=== PATIENT | female | born 1935 | race Caucasian/White ===

== ENCOUNTER → 2016-09-03 | Outpatient (CLI) | payer BC ==
[~2016-09-03] MED LIST: ASPI325T45 PO; ATEN-173 PO; CHOL1000 PO; LOSA50TA6 PO; MULT-663 PO; NXM/40 PO; VITAMIN B12 PO
== END | disposition home or self-care (01) ==
LOC: C.RDSM 10:24
PROVIDERS: ATTEND Physical Medicine & Rehabilitation Sports Medicine
DX: M17.0 Bilateral primary osteoarthritis of knee (principal); M25.561 Pain in right knee

== ENCOUNTER 2017-04-03 14:03 | Inpatient (IN) | payer OTHER, BC ==
[~2017-04-03] VITALS: Ht 162.6 cm; Wt 71.5 kg
[2017-04-03] MEDS ORDERED: MoRPHine SULFATE 4 MG/ML 1 ML CARP\\VIAL ONE ×2 (14:04→14:20)
[2017-04-03] MEDS ORDERED: ONDANSETRON INJ 2 MG/ML 2 ML VIAL ONE (14:04)
[2017-04-03] MEDS ORDERED: HYDROmorphone INJ 0.5 MG/0.5 ML SYR IV PRN ×3 (14:30→16:15)
[2017-04-03 14:37] LABS: BASO % 0.3 %; BASO ABS # 0.03 K/uL (0-0.2); EOS % 2.8 %; EOS ABS # 0.26 K/uL (0-0.5); HEMATOCRIT 38.9 % (37-47); HEMOGLOBIN 13.2 g/dL (12.0-16.0); IG# 0.02 K/uL (0.00-0.02); LYMPH % 25.3 %; LYMPH ABS # 2.36 K/uL (1.2-3.4); MEAN CELL VOLUME 88.8 fL (80-100); MEAN CORPUSCULAR HEMOGLOBIN 30.1 pg (25-34); MEAN CORPUSCULAR HGB CONC 33.9 g/dl (32-36); MEAN PLATELET VOLUME 10.2 fL (7.4-10.4); MONO % 8.8 %; MONO ABS # 0.82 K/uL (0.11-0.59); NEUT % 62.6 %; NEUT ABS # 5.85 K/uL (1.4-6.5); PLATELET COUNT 304 K/uL (130-400); RED CELL DISTRIBUTION WIDTH CV 13.4 % (11.5-14.5); RED CELL DISTRIBUTION WIDTH SD 43.5 fL (36.4-46.3); WHITE BLOOD COUNT 9.34 K/uL (4.8-10.8)
[2017-04-03] MEDS: HYDROmorphone INJ 0.5 MG/0.5 ML SYR IV PRN ×2 (14:40→18:14)
--- NOTE | 2017-04-03 14:42 | EMERGENCY ROOM VISIT NOTE ---
History First contact with patient: 14:28 Chief Complaint: FALL Stated Complaint: FALL History of Present Illness The patient is a 82 year old female who presents to the Emergency Room with complaints of intractable left hip pain after a fall. 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 C/o intractable pain on her left hip/ upper thigh area with no radiation. denies any numbness/tingling or loss of sensation. denies any palpitations, CP, dizziness or lightheadedness prior to the fall. denies any LOC or any head injury She has a h/o polio affecting her right leg. Source of History: patient Symptom Intensity: severe Quality: stabbing Timing: constant Associated Symptoms: No fevers, No chills, No chest pain, No SOB, No back pain, No numbness Review of Systems See above for pertinent positives & negatives. A total of 10 systems reviewed and were otherwise negative. Past Medical/Surgical History Medical Problems: (1) Breast cancer (2) Heart disease (3) Hip fracture (4) Hyperlipidemia (5) Hypertension (6) Polio (7) Vertigo Family History FHx: cancer FHx: hypertension Social History Smoking Status: Never Smoker Alcohol Use: occasionally Drug Use: none Marital Status: Occupation Status: retired Current/Historical Medications Scheduled Aspirin (Aspirin), 2 TAB PO 4XWK Atenolol (Tenormin), 25 MG PO QPM Cholecalciferol (Vitamin D3), 2 TAB PO QAM Losartan Potassium (Cozaar), 50 MG PO QPM Multiple Minerals W/ Vitamins (Citracal Plus), 1 TAB PO QAM [Vitamin B12], 3,000 MG PO QAM Scheduled PRN Esomeprazole Magnesium (Nexium), 40 MG PO DAILY PRN for PRN Physical Exam Vital Signs Date Time Temp Pulse Resp B/P (MAP) Pulse Ox O2 Delivery O2 Flow Rate FiO2 04/03/17 16:56 85 18 136/68 99 Room Air 04/03/17 16:00 81 16 101/54 98 Nasal Cannula 2.0 04/03/17 14:28 100 Nasal Cannula 2.0 04/03/17 14:11 72 04/03/17 14:11 70 18 122/83 98 Room Air Physical Exam GENERAL: Patient is in no acute distress. HEENT: No acute trauma, normocephalic atraumatic, mucous membranes moist, no nasal congestion, no scleral icterus. NECK: No stridor, no adenopathy, no meningismus, trachea is midline. LUNGS: Clear to auscultation bilaterally, no wheeze, no rhonchi, breath sounds equal. HEART: Without murmurs gallops or rubs, regular rate and rhythm. ABDOMEN: Soft, nontender, bowel sounds positive, no hernias, no peritonitis. EXTREMITIES: No cyanosis or edema, left lower extremity everted, no visible bruising or abrasions. neurovascularly intact NEUROLOGIC: Oriented x 3, no acute motor or sensory deficits, no focal weakness. SKIN: No rash, no jaundice, no diaphoresis. Medical Decision & Procedures ER Provider Diagnostic Interpretation: CXR: CHEST ONE VIEW PORTABLE CLINICAL HISTORY: 82 years-old Female presenting with fall. TECHNIQUE: Portable supine AP view of the chest was obtained. COMPARISON: 10/15/2014. FINDINGS: Atherosclerosis of the aortic arch. Cardiac silhouette normal in size. Surgical clips project over the left mid lung, unchanged. Mildly prominent lung markings. No focal opacity. No large effusion or pneumothorax. Degenerative changes of the thoracic spine. Left shoulder arthroplasty. Effacement of the right acromiohumeral interval suggests chronic rotator cuff tear. Upper abdomen normal. IMPRESSION: 1. Prominent pulmonary lung markings could relate to volume overload or supine positioning. No convincing evidence of acute cardiopulmonary disease. Electronically signed by: Ibrahima Galo M.D. 04/03/2017 3:15 PM Dictated Date/Time: 04/03/2017 3:14 PM Pelvis Xray: [~ rep ct add3]] PELVIS 1 OR 2 VIEW ROUTINE CLINICAL HISTORY: Fall. COMPARISON STUDY: No previous studies for comparison. FINDINGS: Note is made of an acute moderately displaced comminuted intertrochanteric fracture of the left femur. Significant associated angulation is noted due to the fracture. No pelvic or proximal right femoral fracture is identified. The sacroiliac joints and symphysis pubis are intact. IMPRESSION: Acute moderately displaced comminuted intertrochanteric fracture of the left femur with significant associated angulation. Electronically signed by: Mir Colón M.D. 04/03/2017 3:16 PM Dictated Date/Time: 04/03/2017 3:15 PM L HIP UNILATERAL 2 VIEWS CLINICAL HISTORY: Left hip fracture trauma. Pain. COMPARISON: None. DISCUSSION: Intertrochanteric fracture left hip. No evidence for acetabular protrusion. Mild superior migration left femoral shaft. There is no evidence for soft tissue swelling. IMPRESSION: Intertrochanteric fracture left hip. Mild superior migration left femoral shaft. Laboratory Results 04/03/17 14:10 Red Blood Count 4.38, Mean Corpuscular Volume 88.8, Mean Corpuscular Hemoglobin 30.1, Mean Corpuscular Hemoglobin Concent 33.9, Mean Platelet Volume 10.2, Neutrophils (%) (Auto) 62.6, Lymphocytes (%) (Auto) 25.3, Monocytes (%) (Auto) 8.8, Eosinophils (%) (Auto) 2.8, Basophils (%) (Auto) 0.3, Neutrophils # (Auto) 5.85, Lymphocytes # (Auto) 2.36, Monocytes # (Auto) 0.82, Eosinophils # (Auto) 0.26, Basophils # (Auto) 0.03 04/03/17 14:10 Test 04/03/17 14:10 04/03/17 16:16 White Blood Count 9.34 K/uL (4.8-10.8) Red Blood Count 4.38 M/uL (4.2-5.4) Hemoglobin 13.2 g/dL (12.0-16.0) Hematocrit 38.9 % (37-47) Mean Corpuscular Volume 88.8 fL (80-100) Mean Corpuscular Hemoglobin 30.1 pg (25-34) Mean Corpuscular Hemoglobin Concent 33.9 g/dl (32-36) Platelet Count 304 K/uL (130-400) Mean Platelet Volume 10.2 fL (7.4-10.4) Neutrophils (%) (Auto) 62.6 % Lymphocytes (%) (Auto) 25.3 % Monocytes (%) (Auto) 8.8 % Eosinophils (%) (Auto) 2.8 % Basophils (%) (Auto) 0.3 % Neutrophils # (Auto) 5.85 K/uL (1.4-6.5) Lymphocytes # (Auto) 2.36 K/uL (1.2-3.4) Monocytes # (Auto) 0.82 K/uL (0.11-0.59) Eosinophils # (Auto) 0.26 K/uL (0-0.5) Basophils # (Auto) 0.03 K/uL (0-0.2) RDW Standard Deviation 43.5 fL (36.4-46.3) RDW Coefficient of Variation 13.4 % (11.5-14.5) Immature Granulocyte % (Auto) 0.2 % Immature Granulocyte # (Auto) 0.02 K/uL (0.00-0.02) Prothrombin Time 9.5 SECONDS (9.0-12.0) Prothromb Time International Ratio 0.9 (0.9-1.1) Activated Partial Thromboplast Time 24.5 SECONDS (21.0-31.0) Partial Thromboplastin Ratio 0.9 Anion Gap 10.0 mmol/L (3-11) Est Creatinine Clear Calc Drug Dose 56.9 ml/min Estimated GFR () 81.4 Estimated GFR (Non- 70.2 BUN/Creatinine Ratio 20.0 (10-20) Calcium Level 9.1 mg/dl (8.5-10.1) Troponin I < 0.015 ng/ml (0-0.045) Medications Administered Medications (Trade) Dose Ordered Sig/Lashaun Route Start Time Stop Time Status Last Admin Dose Admin Morphine Sulfate (MoRPHine SULFATE INJ) 4 mg STK-MED ONCE .ROUTE 04/03/17 14:04 04/03/17 14:05 DC 04/03/17 14:04 4 MG Ondansetron HCl (Zofran Inj) 4 mg STK-MED ONCE .ROUTE 04/03/17 14:04 04/03/17 14:05 DC 04/03/17 14:04 4 MG Morphine Sulfate (MoRPHine SULFATE INJ) 4 mg STK-MED ONCE .ROUTE 04/03/17 14:20 04/03/17 14:21 DC 04/03/17 14:20 4 MG Hydromorphone HCl (Dilaudid Inj) 0.5 mg Q20M PRN IV 04/03/17 14:30 04/17/17 14:29 04/03/17 14:40 0.5 MG ECG Per My Interpretation Indication: other (fall) Rate (beats per minute): 83 Rhythm: normal sinus Change: no significant change Medical Decision Prior records reviewed and summarized above. Triage Nursing notes reviewed. The patient's history was concerning for left hip pain after a fall. Differential diagnosis: Etiologies such as fracture, dislocation, neurovascular compromise, compartment syndrome, soft tissue injury, as well as others were entertained. Physical examination: Consistent with an isolated hip injury. ER treatment provided: IV lock CBC, CMP, X rays hip/pelvis, CXR, EKG were ordered NPO Was given 8 mg IV Morphine and 2 mg of Dilaudid Bedrest On reassessment the patient felt better. Diagnostics interpreted by me: ECG: Normal sinus rhythm Nonspecific ST and T wave abnormality Abnormal ECG When compared with ECG of 13-MAY-2013 14:59, No significant change was found EKG was repeated after she complained about epigastric pain no significant change was found compared to earlier EKG. The labs revealed an unremarkable CBC, coagulation studies, and chemistry panel. Imaging studies: Xrays : CXR: 1. Prominent pulmonary lung markings could relate to volume overload or supine positioning. No convincing evidence of acute cardiopulmonary disease. Pelvis xray: Acute moderately displaced comminuted intertrochanteric fracture of the left femur with significant associated angulation. Hip Xray: Intertrochanteric fracture left hip. Mild superior migration left femoral shaft. The patient has an isolated hip fracture and will need admission to the hospital. Consultation: A consultation was placed with [facility] orthopedics. The case was discussed and diagnostics were reviewed. The patient was evaluated in the ER for further treatment. The case was discussed with [facility] hospital[facility] and she will be admitted for further eval. 82 y/o F with left hip pain after a mechanical fall on her left side. Hip/ pelvis X rays revealed comminuted intertrochanteric fracture of her left hip. Pain was managed adequately with morphine 8 mg IV and Dilaudid 2mg. Orthopedics was consulted and she is scheduled for an ORIF with trochanteric nail tomorrow pending clearance by medicine. Impression Primary Impression: Intertrochanteric fracture of left hip Additional Impression: Fall Departure Information Referrals Nolan Jacinto M.D. (PCP) Patient Instructions My [facility] Resident Tracking Resident Involvement: Resident Care Provided Care Provided: Adult ED Problem Qualifiers
[2017-04-03 14:44] LABS: CREATININE 0.79 mg/dl (0.60-1.20)
[2017-04-03 14:45] LABS: CALCIUM 9.1 mg/dl (8.5-10.1)
[2017-04-03 14:53] LABS: INR 0.9 (0.9-1.1); PTT PATIENT 24.5 SECONDS (21.0-31.0)
--- NOTE | 2017-04-03 15:17 | DIAGNOSTIC IMAGING REPORT ---
CHEST ONE VIEW PORTABLE CLINICAL HISTORY: 82 years-old Female presenting with fall. TECHNIQUE: Portable supine AP view of the chest was obtained. COMPARISON: 10/15/2014. FINDINGS: Atherosclerosis of the aortic arch. Cardiac silhouette normal in size. Surgical clips project over the left mid lung, unchanged. Mildly prominent lung markings. No focal opacity. No large effusion or pneumothorax. Degenerative changes of the thoracic spine. Left shoulder arthroplasty. Effacement of the right acromiohumeral interval suggests chronic rotator cuff tear. Upper abdomen normal. IMPRESSION: 1. Prominent pulmonary lung markings could relate to volume overload or supine positioning. No convincing evidence of acute cardiopulmonary disease. Electronically signed by: Ibrahima Galo M.D. 04/03/2017 3:15 PM Dictated Date/Time: 04/03/2017 3:14 PM
--- NOTE | 2017-04-03 15:17 | DIAGNOSTIC IMAGING REPORT ---
PELVIS 1 OR 2 VIEW ROUTINE CLINICAL HISTORY: Fall. COMPARISON STUDY: No previous studies for comparison. FINDINGS: Note is made of an acute moderately displaced comminuted intertrochanteric fracture of the left femur. Significant associated angulation is noted due to the fracture. No pelvic or proximal right femoral fracture is identified. The sacroiliac joints and symphysis pubis are intact. IMPRESSION: Acute moderately displaced comminuted intertrochanteric fracture of the left femur with significant associated angulation. Electronically signed by: Mir Colón M.D. 04/03/2017 3:16 PM Dictated Date/Time: 04/03/2017 3:15 PM
[2017-04-03] MEDS ORDERED: BISACODYL 10 MG SUPP PR PRN (16:15)
[2017-04-03] MEDS ORDERED: MAGNESIUM HYDROXIDE SUSP 30 ML UDC PO PRN ×2 (16:15→16:30)
[2017-04-03] MEDS ORDERED: ONDANSETRON INJ 2 MG/ML 2 ML VIAL IV PRN ×2 (16:15→16:30)
[2017-04-03] MEDS ORDERED: NALOXONE HCL 0.4 MG/1 ML VIAL/CARP IV PRN (16:15)
[2017-04-03] MEDS ORDERED: POLYETHYLENE (MIRALAX) 17 GM PACK PO PRN ×2 (16:15→16:30)
[2017-04-03] MEDS ORDERED: SOD PHOSPHATE/SOD BIPHOSPHATE ENEMA 132 ML BTL PR PRN (16:15)
[2017-04-03] MEDS ORDERED: SODIUM CHLORIDE 0.9% 1000ML 1,000 ML IV SCH (16:25)
[2017-04-03] MEDS ORDERED: ZOLPIDEM TARTRATE 5 MG TAB PO PRN ×2 (16:30)
[2017-04-03] MEDS ORDERED: MoRPHine SULFATE 2 MG/ML CARP IV PRN (16:30)
[2017-04-03] MEDS ORDERED: ALUMINUM/MAGNESIUM/SIMETH (MAALOX MAX) 30 ML UDC PO PRN (16:30)
[2017-04-03] MEDS ORDERED: ACETAMINOPHEN 325 MG TAB PO PRN (16:30)
--- NOTE | 2017-04-03 16:39 | DIAGNOSTIC IMAGING REPORT ---
L HIP UNILATERAL 2 VIEWS CLINICAL HISTORY: Left hip fracture trauma. Pain. COMPARISON: None. DISCUSSION: Intertrochanteric fracture left hip. No evidence for acetabular protrusion. Mild superior migration left femoral shaft. There is no evidence for soft tissue swelling. IMPRESSION: Intertrochanteric fracture left hip. Mild superior migration left femoral shaft. The above report was generated using voice recognition software. It may contain grammatical, syntax or spelling errors. Electronically signed by: Liborio oVss M.D. 04/03/2017 4:37 PM Dictated Date/Time: 04/03/2017 4:36 PM
--- NOTE | 2017-04-03 16:52 | ORTHOPEDIC CONSULTATION REPORT ---
DATE OF CONSULTATION: 04/03/2017 CHIEF COMPLAINT: Left hip pain. HISTORY OF PRESENT ILLNESS: This 82-year-old white female presents to the ED after falling today outside. 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 When she turned, she tripped over a curb and fell directly onto her left hip. She had immediate onset of pain. She states she knew immediately that she broke her hip. She has a known history of polio that affects her right leg. She denies any numbness or tingling. No loss of sensation. There was no dizziness or heart palpitations associated for the fall. No loss of consciousness. She denies any head injury. There was no chest pain or shortness of breath at the time of fall. It was purely mechanical. 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 FAMILY HISTORY: Significant for cancer and hypertension. SOCIAL HISTORY: The patient is . No tobacco use. Occasional ETOH use. Retired. PREVIOUS SURGERIES: Cholecystectomy, right wrist ORIF, right knee arthroscopy, left second toe pinning, breast lumpectomy, tonsillectomy, and bilateral cataract surgery. HABILITATION WORKER: Dr. Iván Gipson. PRIMARY CARE DOCTOR: Dr. Nolan Jacinto. ALLERGIES: KNOWN ALLERGY TO ADHESIVES AND IODINE. CURRENT MEDICATIONS: Aspirin 2 tablets p.o. 4 times a week, atenolol 25 mg p.o. q.p.m., vitamin D3 p.o. q.a.m., Cozaar 50 mg p.o. q.p.m., multivitamin daily, vitamin B12 daily, and Nexium 40 mg p.o. daily. REVIEW OF SYSTEMS: Significant for above stated conditions. Otherwise unremarkable. PHYSICAL EXAMINATION: GENERAL: Well-developed and well-nourished elderly white female in no acute distress. Obvious discomfort. Lying on a bed. Alert and oriented. VITAL SIGNS: Pulse 72, respirations 18, O2 sat 98% on room air, and BP 122/83. SKIN: Warm and dry with good turgor. No rashes or lesions. No ecchymosis or erythema. No significant abrasions. HEENT: Normocephalic and atraumatic. Eyes: PERRLA and EOMI. Pupils are slightly constricted at this time. Nares patent bilaterally without turbinate enlargement. Oropharynx is without erythema or exudate. No lesions noted. Uvula midline. Oral mucosa is slightly dry. HEART: RRR. No MGR. LUNGS: Clear to auscultation bilaterally. No crackles, rhonchi or wheezing. Good air movement. ABDOMEN: Soft and nontender. Hyperactive bowel sounds. No masses noted. MUSCULOSKELETAL: Left leg is short and externally rotated. She has increasing pain with any motion at the left hip. Left hip is also tender to touch. Intact motor function to the ankle and toes without discomfort. Intact motion of the right hip, knee, and ankle. NEUROLOGIC: Cranial nerves II through XII are intact. Gross sensation is intact across the left leg by soft touch. Peripheral pulses are 2+. DATA: Radiographic imaging obtained in the ED shows a comminuted intertrochanteric fracture, moderately displaced with angulation. EKG obtained today shows normal sinus rhythm with a rate of 73. IMPRESSION: Left hip comminuted intertrochanteric fracture with moderate displacement and angulation. PLAN: The patient was educated regarding today's findings. She will require admission and clearance by the medical team. She did eat at approximately 13:00 and will be done tomorrow morning. Preoperative lab work has been completed. I have already spoken with anesthesia and they will evaluate her as well due to her history of polio. I will also speak with her commercial roofer, Dr. Gipson. Anticipate ORIF with a trochanteric nail of the left hip. The patient was seen in conjunction with Dr. Carcamo, who also evaluated the patient and did obtain informed written consent. I attended to this patient and agree with above. [facility]
[2017-04-03] MEDS ORDERED: D5W AND NSS 1,000 ML IV SCH (17:00)
[2017-04-03 17:16] VITALS: O2SAT 99; Ht 162.6 cm; Wt 71.5 kg
--- NOTE | 2017-04-03 17:27 | Progress Note ---
Progress Note Date of Service Apr 03, 2017. 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 Patient is scheduled for ORIF of left hip tomorrow. Pt seen and interviewed in the ED. 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 Pt denies having bulbar involvement of her polio, although she reports dysphagia when she had the polio. Has had EGD with dilation for her schatzki ring, with the most recent one during summer 2016. Pt reports that dysphagia resolved after her last dilation. Discussed with patient regarding anesthesia plan, GA vs. spinal. Risks and benefits for each one was discussed in detail. Patient has had GA for her cholecystectomy and left TSA most recently in 2002 without any complications or prolonged ventilatory support. All questions and concerns were answered and patient was consented. Pt was advised to be NPO after midnight except for small sips of water with meds in the morning.
--- NOTE | 2017-04-03 17:56 | History and Physical ---
History & Physical Date & Time of Service: Apr 03, 2017 at 17:45 Chief Complaint: FALL Primary Care Physician: Nolan Jacinto M.D. History of Present Illness Source: patient, hospital records 82-year-old female with past medical history of hypertension, dyslipidemia, polio with right lower extremity weakness and mid back muscle weakness and osteoporosis. 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 Pelvic x-ray revealed Acute moderately displaced comminuted intertrochanteric fracture of the left femur with significant associated angulation. She does have previous history of multiple falls status post shoulder and wrist fractures. Also his past medical history of breast cancer 24 years ago status post lumpectomy/chemotherapy/radiation Patient said that chemotherapy had left her with mild congestive heart failure, most recent echo was about 5 years ago and showed ejection fraction of 45%. While she is in the ED she developed bigeminy's and frequent ventricular contractions. Past Medical/Surgical History Medical Problems: (1) Breast cancer Status: Chronic (2) Heart disease Status: Chronic (3) Hyperlipidemia Status: Chronic (4) Hypertension Status: Chronic (5) Polio Status: Chronic (6) Vertigo Status: Chronic Family History FHx: cancer FHx: hypertension Social History Smoking Status: Never Smoker Drug Use: none Marital Status: Housing status: lives with family Occupational Status: retired Multi-Drug Resistant Organisms History of MDRO: No Allergies Coded Allergies: Adhesives (Verified Allergy, Mild, UNKNOWN, 11/02/15) SILK SURGICAL TAPE Iodine (Verified Allergy, Mild, UNSURE OF RX, 11/02/15) IODINE DYE Home Medications Scheduled Aspirin (Aspirin), 2 TAB PO 4XWK Atenolol (Tenormin), 25 MG PO QPM Cholecalciferol (Vitamin D3), 2 TAB PO QAM Losartan Potassium (Cozaar), 50 MG PO QPM Multiple Minerals W/ Vitamins (Citracal Plus), 1 TAB PO QAM [Vitamin B12], 3,000 MG PO QAM Scheduled PRN Esomeprazole Magnesium (Nexium), 40 MG PO DAILY PRN for PRN Review of Systems Review of system Constitutional: No fever / no chills / no sweats / no weakness / no fatigue Eyes: no blurring of vision / no eye pain / no discharge / no redness ENT: no hearing loss / no epistaxis /no swallowing problems Respiratory: no cough / no wheezing / no SOB / no hemoptysis Cardiovascular: no Chest pain / no lower extremity edema / no palpitation Abdomen: no pain / no nausea / no vomiting / no constipation Musculoskeletal: no joint pain / no muscle pain / no joint swelling, except for pain and decreased range of motion of her left hip Genitourinary: no dysuria / no incontinence / no urinary retention Neurologic: no focal weakness / no numbness/tingling / no ataxia Psychiatric: no depression symptoms / no anxiety / no insomnia Endocrine: no excessive thirst / no excessive urination Hematologic: no abnormal bleeding / no bruising / no LN swelling Skin: No rash / no pallor Physical Exam Vital Signs Date Time Temp Pulse Resp B/P (MAP) Pulse Ox O2 Delivery O2 Flow Rate FiO2 04/03/17 16:56 85 18 136/68 99 Room Air 04/03/17 16:00 81 16 101/54 98 Nasal Cannula 2.0 04/03/17 14:28 100 Nasal Cannula 2.0 04/03/17 14:11 72 04/03/17 14:11 70 18 122/83 98 Room Air Physical examination General patient appears to be comfortable, not in acute distress HEENT: Atraumatic , normocephalic /no jaundice /no pallor /anicteric /no dry mucous membrane /normal external ear inspection Neck: Supple /no swelling /central trach Heart: S1/S2 normal/regular rate and rhythm/no gallop /no rub /no murmur Lungs: Clear to auscultation bilaterally/normal chest with expansion/no rhonchi/ no rales/no wheezing/no use of accessory muscles of respiration Abdomen: Soft/nontender/no guarding/no rebound/no organomegaly/no pulsatile mass Musculoskeletal: No swelling/no edema/no tenderness/normal range of motion, right lower extremity is longer than left lower extremity, muscles are atrophied in the right lower extremity. Left hip tender and decreased range of motion Neuro exam: Awake alert oriented 3/cranial nerves II through XII appear to be intact/sensation intact/moves all extremities/no abnormal movements, except for weakness in right lower extremity Psychiatric evaluation: No depressed mood/normal affect Skin: No rash on exposed skin area/no erythema Extremity: Normal pulse/no pitting edema/no clubbing or cyanosis Endocrine/lymphatic: No obvious lymphadenopathy /no lymphedema Diagnostics Laboratory Results Results Past 24 Hours Test 04/03/17 14:10 Range/Units White Blood Count 9.34 4.8-10.8 K/uL Red Blood Count 4.38 4.2-5.4 M/uL Hemoglobin 13.2 12.0-16.0 g/dL Hematocrit 38.9 37-47 % Mean Corpuscular Volume 88.8 80-100 fL Mean Corpuscular Hemoglobin 30.1 25-34 pg Mean Corpuscular Hemoglobin Concent 33.9 32-36 g/dl Platelet Count 304 130-400 K/uL Mean Platelet Volume 10.2 7.4-10.4 fL Neutrophils (%) (Auto) 62.6 % Lymphocytes (%) (Auto) 25.3 % Monocytes (%) (Auto) 8.8 % Eosinophils (%) (Auto) 2.8 % Basophils (%) (Auto) 0.3 % Neutrophils # (Auto) 5.85 1.4-6.5 K/uL Lymphocytes # (Auto) 2.36 1.2-3.4 K/uL Monocytes # (Auto) 0.82 0.11-0.59 K/uL Eosinophils # (Auto) 0.26 0-0.5 K/uL Basophils # (Auto) 0.03 0-0.2 K/uL RDW Standard Deviation 43.5 36.4-46.3 fL RDW Coefficient of Variation 13.4 11.5-14.5 % Immature Granulocyte % (Auto) 0.2 % Immature Granulocyte # (Auto) 0.02 0.00-0.02 K/uL Prothrombin Time 9.5 9.0-12.0 SECONDS Prothromb Time International Ratio 0.9 0.9-1.1 Activated Partial Thromboplast Time 24.5 21.0-31.0 SECONDS Partial Thromboplastin Ratio 0.9 Sodium Level 138 136-145 mmol/L Potassium Level 4.0 3.5-5.1 mmol/L Chloride Level 103 98-107 mmol/L Carbon Dioxide Level 24 21-32 mmol/L Anion Gap 10.0 3-11 mmol/L Blood Urea Nitrogen 16 7-18 mg/dl Creatinine 0.79 0.60-1.20 mg/dl Est Creatinine Clear Calc Drug Dose 56.9 ml/min Estimated GFR () 81.4 Estimated GFR (Non- 70.2 BUN/Creatinine Ratio 20.0 10-20 Random Glucose 98 70-99 mg/dl Calcium Level 9.1 8.5-10.1 mg/dl Magnesium Level 2.4 1.8-2.4 mg/dl Troponin I < 0.015 0-0.045 ng/ml Impression Assessment and Plan 82-year-old female with past medical history of systolic congestive heart failure, hypertension, dyslipidemia and polio affecting right lower extremity and mid back muscles. Had mechanical fall and fractured left hip. Assessment: Status post mechanical fall and acute moderately displaced comminuted intertrochanteric fracture of the left femur with significant associated angulation. Bigeminy and multiple ventricular contractions Hypertension Dyslipidemia History of polio with right lower extremity weakness and weakness in mid back muscle History of multiple falls in the past and history of fracture of shoulder/wrist History of myocardial infarct in 2002 Plan Admit to telemetry Obtain potassium and magnesium levels Consult filter machine operator Dr. Bal Continue atenolol, but hold losartan Gentle IV fluid hydration N.p.o. from midnight Aside from her cardiac issues that filter machine operator was consulted for, from the medical aspect benefits of the procedures outweighs the risk, patient denies any chest pain or shortness of breath, for that and patient from my perspective is medically clear for her type replacement, but need filter machine operator clearance as well. Dr. Bal requested a 2D echo that will be done at 6 AM in the morning Follow-up labs Ensure adequate oral/parenteral intake Pain management Physical therapy initiation as per primary orthopedic team DVT prophylaxis as per the choice of primary orthopedic team Advanced Directives Existing Living Will: Yes Existing Power of Tubing Machine Tender: Yes VTE Prophylaxis VTE Risk Assessment Done? Y/N: Yes Risk Level: Moderate
[2017-04-03 18:11] VITALS: BP 139/69; PULSE 74; TEMP 36.7; O2SAT 99
--- NOTE | 2017-04-03 19:09 | EMERGENCY ROOM VISIT NOTE ---
History Report prepared by Melchor: Gerald Perez Under the Supervision of: Dr. Cesario Jamil M.D. 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 She rates her pain a 10/10 in severity. She has a past medical history of polio affecting her right leg. 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 She did not lose consciousness or hit her head. Her pain is not radiating to any other location. Pt denies any headache, visual changes, neck pain, chest pain, breathing difficulties, nausea, vomiting, abdominal pain, back pain, extremity pain, numbness, weakness, open wounds, active bleeding, or other complaints. Her pain worsens significantly with movement. Source of History: patient Onset: SCIENTIFIC PROCESS OPERATOR Position: other (left hip) Symptom Intensity: 10/10 Quality: sharp Timing: constant Modifying Factors (Worsening): movement Review of Systems See HPI for pertinent positives and negatives. A total of ten systems were reviewed and were otherwise negative. Past Medical & Surgical Medical Problems: (1) Breast cancer (2) Heart disease (3) Hip fracture (4) Hyperlipidemia (5) Hypertension (6) Polio (7) Vertigo Family History FHx: cancer FHx: hypertension Social History Smoking Status: Never Smoker Alcohol Use: occasionally Drug Use: none Marital Status: Occupation Status: retired Current/Historical Medications Scheduled Aspirin (Aspirin), 2 TAB PO 4XWK Atenolol (Tenormin), 25 MG PO QPM Cholecalciferol (Vitamin D3), 2 TAB PO QAM Losartan Potassium (Cozaar), 50 MG PO QPM Multiple Minerals W/ Vitamins (Citracal Plus), 1 TAB PO QAM [Vitamin B12], 3,000 MG PO QAM Scheduled PRN Esomeprazole Magnesium (Nexium), 40 MG PO DAILY PRN for PRN Allergies Coded Allergies: Adhesives (Verified Allergy, Mild, UNKNOWN, 11/02/15) SILK SURGICAL TAPE Iodine (Verified Allergy, Mild, UNSURE OF RX, 11/02/15) IODINE DYE Physical Exam Vital Signs Date Time Temp Pulse Resp B/P (MAP) Pulse Ox O2 Delivery O2 Flow Rate FiO2 04/03/17 16:00 81 16 101/54 98 Nasal Cannula 2.0 04/03/17 14:28 100 Nasal Cannula 2.0 04/03/17 14:11 72 04/03/17 14:11 70 18 122/83 98 Room Air Physical Exam GENERAL: Awake, alert, very uncomfortable appearing, in no distress HENT: Normocephalic, atraumatic. Oropharynx unremarkable. EYES: Normal conjunctiva. Sclera non-icteric. NECK: Supple. No nuchal rigidity. FROM. No masses. RESPIRATORY: Clear to auscultation. No wheezes. CARDIAC: Normal rate. Normal rhythm. No murmurs. No rubs. Extremities warm and well perfused. Pulses equal. No JVD. GI: Soft, non-distended. No tenderness to palpation. No rebound or guarding. No masses. RECTAL: Deferred. MUSCULOSKELETAL: Atraumatic. Chest examination reveals no tenderness. The back is symmetrical on inspection without obvious abnormality. There is no CVA tenderness to palpation. No joint edema. LOWER EXTREMITIES: Left hip tenderness to palpation. ROM limited secondary to pain. Calves are equal size bilaterally and non-tender. No edema. No discoloration. NEURO: Normal sensorium. No sensory or motor deficits noted. SKIN: No rash or jaundice noted. Medical Decision & Procedures ER Provider Diagnostic Interpretation: Radiology results as stated below per my review and radiologist interpretation: CHEST ONE VIEW PORTABLE CLINICAL HISTORY: 82 years-old Female presenting with fall. TECHNIQUE: Portable supine AP view of the chest was obtained. COMPARISON: 10/15/2014. FINDINGS: Atherosclerosis of the aortic arch. Cardiac silhouette normal in size. Surgical clips project over the left mid lung, unchanged. Mildly prominent lung markings. No focal opacity. No large effusion or pneumothorax. Degenerative changes of the thoracic spine. Left shoulder arthroplasty. Effacement of the right acromiohumeral interval suggests chronic rotator cuff tear. Upper abdomen normal. IMPRESSION: 1. Prominent pulmonary lung markings could relate to volume overload or supine positioning. No convincing evidence of acute cardiopulmonary disease. Electronically signed by: Ibrahima Galo M.D. 04/03/2017 3:15 PM Dictated Date/Time: 04/03/2017 3:14 PM PELVIS 1 OR 2 VIEW ROUTINE CLINICAL HISTORY: Fall. COMPARISON STUDY: No previous studies for comparison. FINDINGS: Note is made of an acute moderately displaced comminuted intertrochanteric fracture of the left femur. Significant associated angulation is noted due to the fracture. No pelvic or proximal right femoral fracture is identified. The sacroiliac joints and symphysis pubis are intact. IMPRESSION: Acute moderately displaced comminuted intertrochanteric fracture of the left femur with significant associated angulation. Electronically signed by: Mir Colón M.D. 04/03/2017 3:16 PM Dictated Date/Time: 04/03/2017 3:15 PM Laboratory Results 04/03/17 14:10 Red Blood Count 4.38, Mean Corpuscular Volume 88.8, Mean Corpuscular Hemoglobin 30.1, Mean Corpuscular Hemoglobin Concent 33.9, Mean Platelet Volume 10.2, Neutrophils (%) (Auto) 62.6, Lymphocytes (%) (Auto) 25.3, Monocytes (%) (Auto) 8.8, Eosinophils (%) (Auto) 2.8, Basophils (%) (Auto) 0.3, Neutrophils # (Auto) 5.85, Lymphocytes # (Auto) 2.36, Monocytes # (Auto) 0.82, Eosinophils # (Auto) 0.26, Basophils # (Auto) 0.03 04/03/17 14:10 Test 04/03/17 14:10 White Blood Count 9.34 K/uL (4.8-10.8) Red Blood Count 4.38 M/uL (4.2-5.4) Hemoglobin 13.2 g/dL (12.0-16.0) Hematocrit 38.9 % (37-47) Mean Corpuscular Volume 88.8 fL (80-100) Mean Corpuscular Hemoglobin 30.1 pg (25-34) Mean Corpuscular Hemoglobin Concent 33.9 g/dl (32-36) Platelet Count 304 K/uL (130-400) Mean Platelet Volume 10.2 fL (7.4-10.4) Neutrophils (%) (Auto) 62.6 % Lymphocytes (%) (Auto) 25.3 % Monocytes (%) (Auto) 8.8 % Eosinophils (%) (Auto) 2.8 % Basophils (%) (Auto) 0.3 % Neutrophils # (Auto) 5.85 K/uL (1.4-6.5) Lymphocytes # (Auto) 2.36 K/uL (1.2-3.4) Monocytes # (Auto) 0.82 K/uL (0.11-0.59) Eosinophils # (Auto) 0.26 K/uL (0-0.5) Basophils # (Auto) 0.03 K/uL (0-0.2) RDW Standard Deviation 43.5 fL (36.4-46.3) RDW Coefficient of Variation 13.4 % (11.5-14.5) Immature Granulocyte % (Auto) 0.2 % Immature Granulocyte # (Auto) 0.02 K/uL (0.00-0.02) Prothrombin Time 9.5 SECONDS (9.0-12.0) Prothromb Time International Ratio 0.9 (0.9-1.1) Activated Partial Thromboplast Time 24.5 SECONDS (21.0-31.0) Partial Thromboplastin Ratio 0.9 Anion Gap 10.0 mmol/L (3-11) Est Creatinine Clear Calc Drug Dose 56.9 ml/min Estimated GFR () 81.4 Estimated GFR (Non- 70.2 BUN/Creatinine Ratio 20.0 (10-20) Calcium Level 9.1 mg/dl (8.5-10.1) Magnesium Level 2.4 mg/dl (1.8-2.4) Troponin I < 0.015 ng/ml (0-0.045) Laboratory results reviewed by me Medications Administered Medications (Trade) Dose Ordered Sig/Lashaun Route Start Time Stop Time Status Last Admin Dose Admin Morphine Sulfate (MoRPHine SULFATE INJ) 4 mg STK-MED ONCE .ROUTE 04/03/17 14:04 04/03/17 14:05 DC 04/03/17 14:04 4 MG Ondansetron HCl (Zofran Inj) 4 mg STK-MED ONCE .ROUTE 04/03/17 14:04 04/03/17 14:05 DC 04/03/17 14:04 4 MG Morphine Sulfate (MoRPHine SULFATE INJ) 4 mg STK-MED ONCE .ROUTE 04/03/17 14:20 04/03/17 14:21 DC 04/03/17 14:20 4 MG Hydromorphone HCl (Dilaudid Inj) 0.25 mg Q20M PRN IV 04/03/17 14:30 04/03/17 18:31 DC 04/03/17 17:05 0.25 MG Hydromorphone HCl (Dilaudid Inj) 0.5 mg Q20M PRN IV 04/03/17 14:30 18 18:31 DC 04/03/17 18:14 0.5 MG Sodium Chloride 1,000 ml @ 50 mls/hr Q20H IV 04/03/17 16:25 05/03/17 16:24 04/03/17 18:34 50 MLS/HR ECG Per My Interpretation Indication: other (Trauma) Rate (beats per minute): 73 Rhythm: normal sinus Findings: nonspecific-ST abn, no ectopy Change: 2nd ECG revealed normal sinus rhythm with a rate of [address] abnormalities seen without any ectopy. No significant change from previous ECG. Patient's electrocardiograms were interpreted by me. ED Course 1411: The patient was evaluated in room A1. A complete history and physical exam was performed. 1505: I discussed the patient's case with Barry Ling of Orthopedics at this time. He recommended further inpatient evaluation with a medicine team, but he will come evaluate the patient in the ER as well. 1539: Upon reexamination, the patient was resting. I discussed the test results and treatment plan with her. I discussed the patient's case with Dr. Dennis Xiao of [facility]. The patient will be evaluated for further management. Medical Decision Triage Nursing notes reviewed and agree them. The patient's history was concerning for traumatic injury. Differential diagnosis: Etiologies such as fracture, dislocation, neurovascular compromise, compartment syndrome, soft tissue injury, as well as others were entertained. Physical examination: Consistent with an isolated hip injury. ER treatment provided: IV lock Zofran 4mg IV Morphine times multiple doses IV Dilaudid NPO Bedrest On reassessment the patient felt better. Diagnostics interpreted by me: ECG: As above The labs revealed an unremarkable CBC, coags, and chemistry panel. Imaging studies: Xrays as above. The patient has an isolated hip fracture and will need admission to the hospital. Consultation: A consultation was placed with [facility] orthopedics . The case was discussed and diagnostics were reviewed. The patient was evaluated in the ER for further treatment. The patient was seen and examined with Dr. Fair, resident physician. We discussed the case and treatments ordered, reviewed the results, and determine the disposition. Please refer to the resident's note for additional details. I have been directly involved with the management and disposition as well as independently evaluated the patient as documented in this note. Medication Reconcilliation Current Medication List: was personally reviewed by me Blood Pressure Screening Patient's blood pressure: Normal blood pressure Blood pressure disposition: Did not require urgent referral Consults Time Called: 1500 Consulting Physician: Barry Ling PA-C - Orthopedics Returned Call: 1505 We discussed the patient's case. He recommended further treatment and evaluation as an inpatient. He will be in to evaluate the patient. Additional Consults: Time Called: 1535 [facility] Returned Call: [phone] Additional Comments: Discussed the patient's case. The patient will be evaluated for further treatment and disposition. Impression Primary Impression: Hip fracture Additional Impression: Fall Scribe Attestation The scribe's documentation has been prepared under my direction and personally reviewed by me in its entirety. I confirm that the note above accurately reflects all work, treatment, procedures, and medical decision making performed by me. Departure Information Dispostion Being Evaluated By Hospitalist Referrals Nolan Jacinto M.D. (PCP) Patient Instructions [facility] Problem Qualifiers Primary Impression: Hip fracture Encounter type: initial encounter Fracture type: closed Laterality: left Qualified Codes: S72.002A - Fracture of unspecified part of neck of left femur , initial encounter for closed fracture Additional Impression: Fall Encounter type: initial encounter Qualified Codes: W19.XXXA - Unspecified fall, initial encounter
[2017-04-03 19:30] VITALS: BP 116/72; PULSE 81; TEMP 36.7; O2SAT 91
[2017-04-03] MEDS ORDERED: DOCUSATE SODIUM/SENNA 50/8.6MG TAB PO SCH (21:00)
[2017-04-03] MEDS ORDERED: ERGOCALCIFEROL 50,000 INTER.UNIT CAP PO ONE (22:15)
[2017-04-04 00:17] VITALS: BP 100/54; PULSE 80; TEMP 36.7; O2SAT 94
[2017-04-04 04:53] VITALS: BP 101/56; PULSE 66; TEMP 36.6; O2SAT 97
[2017-04-04 05:53] LABS: HEMATOCRIT 33.5 % (37-47); HEMOGLOBIN 11.4 g/dL (12.0-16.0); MEAN CELL VOLUME 88.6 fL (80-100); MEAN CORPUSCULAR HEMOGLOBIN 30.2 pg (25-34); MEAN PLATELET VOLUME 9.9 fL (7.4-10.4); PLATELET COUNT 241 K/uL (130-400); RED CELL DISTRIBUTION WIDTH CV 13.6 % (11.5-14.5); RED CELL DISTRIBUTION WIDTH SD 43.9 fL (36.4-46.3); WHITE BLOOD COUNT 8.88 K/uL (4.8-10.8)
[2017-04-04] MEDS ORDERED: CEFAZOLIN 2000MG IV PUSH 15 ML IV SCH (06:00)
[2017-04-04 06:20] LABS: ALBUMIN 2.9 gm/dl (3.4-5.0); CALCIUM 8.3 mg/dl (8.5-10.1); CREATININE 0.62 mg/dl (0.60-1.20); POTASSIUM 3.9 mmol/L (3.5-5.1)
[2017-04-04 06:23] LABS: TOTAL PROTEIN 5.9 gm/dl (6.4-8.2)
[2017-04-04 06:26] LABS: BASO % 0.1 %; BASO ABS # 0.01 K/uL (0-0.2); EOS % 0.1 %; EOS ABS # 0.01 K/uL (0-0.5); IG# 0.03 K/uL (0.00-0.02); LYMPH % 10.5 %; LYMPH ABS # 0.93 K/uL (1.2-3.4); MONO % 11.7 %; MONO ABS # 1.04 K/uL (0.11-0.59); NEUT % 77.3 %; NEUT ABS # 6.86 K/uL (1.4-6.5)
[2017-04-04] MEDS ORDERED: BUPIVACAINE 0.5 % 5 MG/1 ML PF 10ML VIAL ONE (06:27)
[2017-04-04] MEDS ORDERED: ROCURONIUM BROMIDE 10 MG/ML 5 ML VIAL IV ONE (06:34)
[2017-04-04] MEDS ORDERED: NEOSTIGMINE METHYLSULFATE 5 MG/5 ML SYR ONE (06:34)
[2017-04-04] MEDS ORDERED: ONDANSETRON INJ 2 MG/ML 2 ML VIAL ONE (06:34)
[2017-04-04] MEDS ORDERED: GLYCOPYRROLATE INJ 0.2 MG/ML VIAL ONE (06:34)
[2017-04-04] MEDS ORDERED: PROPOFOL IV EMULSION 10 MG/ML 20 ML VIAL IV ONE (06:34)
[2017-04-04] MEDS ORDERED: LIDOCAINE HCL 2% 2 ML VIAL (20MG/ML) ONE (06:34)
[2017-04-04] MEDS ORDERED: FENTANYL CITRATE INJ 50 MCG/1 ML 2 ML VIAL ONE (06:35)
[2017-04-04] MEDS ORDERED: MIDAZOLAM HCL 1 MG/ML 2ML VIAL ONE (06:35)
[2017-04-04 07:03] VITALS: BP 97/49; PULSE 76; TEMP 36.9; O2SAT 91
--- NOTE | 2017-04-04 07:16 | History & Physical Bridge Note ---
H&P Re-Evaluation Bridge Note: I have examined the patient, reviewed the History & Physical and in the interval since the performance of the History & Physical I have noted the following changes of clinical significance:awaits echo result,otherwise no change.No changes noted
[2017-04-04] MEDS ORDERED: KETAMINE HCL INJ 50 MG/ML 10 ML VIAL ONE (08:04)
--- NOTE | 2017-04-04 08:04 | Cardiology Consultation ---
Cardiology Consultation Date of Consultation: Apr 04, 2017. Requesting Physician: Dr. Xiao Reason for Consultation: History of cardiomyopathy Pt evaluation today including: conversation w/ patient, physical exam, lab review, review of studies, review of inpatient medication list History of Present Illness This is a very pleasant 82-year-old woman, she has a history of hypertension, hypercholesterolemia and a long-standing mild cardiomyopathy probably related to prior chemotherapy from breast cancer. That was many years ago and her ejection fraction in the past has been in the 40-50% range. She has been doing well lately, she continues to be active and does not have exertional shortness of breath, orthopnea, PND or peripheral edema. She has no palpitations and no exertional chest discomfort. She presents now following a fall, she was helping a patient into a car and when she turned to go back into the hospital she tripped over a rise in the pavement. She is very clear that she had no lightheadedness or dizziness, no presyncope or syncope and no palpitations. Her only complaint is hip discomfort. Past Medical/Surgical History (1) Breast cancer (2) Hypertension (3) Hyperlipidemia (4) Polio Family History FHx: cancer FHx: hypertension Social History Smoking Status: Never Smoker History of Alcohol Use: Yes (OCCASSIONALLY) Review of Systems Constitutional: No fever, No weight loss, No weakness Respiratory: No cough, No wheezing, No shortness of breath, No dyspnea on exertion Cardiac: No chest pain, No orthopnea, No PND, No edema, No palpitations Abdomen: No pain, No nausea, No vomiting, No diarrhea, No GI bleeding Female : No problem reported Neurologic: No paralysis, No weakness, No numbness/tingling, No balance problems Heme: No abnormal bleeding/bruising, No clotting problems Endo: No fatigue Skin: No problem reported Hip pain All Other Systems: Reviewed and Negative Allergies Coded Allergies: Adhesives (Verified Allergy, Mild, UNKNOWN, 11/02/15) SILK SURGICAL TAPE Iodine (Verified Allergy, Mild, UNSURE OF RX, 11/02/15) IODINE DYE Medications Current Inpatient Medications Medications (Trade) Dose Ordered Sig/Lashaun Route Start Time Stop Time Status Last Admin Dose Admin Cefazolin Sodium 15 ml @ 3.75 mls/ min PREOP IV 04/04/17 06:00 04/05/17 05:59 Ondansetron HCl (Zofran Inj) 4 mg Q6H PRN IV 04/03/17 16:15 05/03/17 16:14 04/03/17 19:16 4 MG Hydromorphone HCl (Dilaudid Inj) 0.25 mg Q20M PRN IV 04/03/17 16:15 04/17/17 16:14 04/04/17 05:36 0.25 MG Hydromorphone HCl (Dilaudid Inj) 0.5 mg Q20M PRN IV 04/03/17 16:15 04/17/17 16:14 04/03/17 20:50 0.5 MG Naloxone HCl (Narcan Inj) 0.1 mg PRN PRN IV 04/03/17 16:15 05/03/17 16:14 Senna/Docusate Sodium (Senokot S Tab) 2 tab HS PO 04/03/17 21:00 05/03/17 20:59 04/03/17 20:42 2 TAB Polyethylene (Miralax Powder Packet) 17 gm DAILY PRN PO 04/03/17 16:15 05/03/17 16:14 Magnesium Hydroxide (Milk Of Magnesia Susp) 30 ml DAILY PRN PO 04/03/17 16:15 05/03/17 16:14 Bisacodyl (Dulcolax Supp) 10 mg DAILY PRN NV 04/03/17 16:15 05/03/17 16:14 Sodium Biphosphate/ Sodium Phosphate (Fleet Enema) 132 ml PRN PRN NV 04/03/17 16:15 Atenolol (Tenormin Tab) 25 mg QPM PO 04/04/17 21:00 05/04/17 20:59 Pantoprazole Sodium (Protonix Tab) 40 mg DAILY PRN PO 04/04/17 09:00 05/04/17 08:59 Multivitamins/ Minerals (Multivitamin W/ Minerals Tab) 1 tab QAM PO 04/04/17 09:00 05/04/17 08:59 Cyanocobalamin (Vitamin B-12 Tab) 3,000 mcg QAM PO 04/04/17 09:00 05/04/17 08:59 Sodium Chloride 1,000 ml @ 50 mls/hr Q20H IV 04/03/17 16:25 05/03/17 16:24 04/03/17 18:34 50 MLS/HR Acetaminophen (Tylenol Tab) 650 mg Q4H PRN PO 04/03/17 16:30 05/03/17 16:29 Future Hold Al Hydrox/Mg Hydrox/Simethicone (Maalox Max Susp) 15 ml Q4H PRN PO 04/03/17 16:30 05/03/17 16:29 Zolpidem Tartrate (Ambien Tab) 5 mg HSZ PRN PO 04/03/17 16:30 05/03/17 16:29 Morphine Sulfate (MoRPHine SULFATE INJ) 2 mg Q30M PRN IV 04/03/17 16:30 04/17/17 16:29 Ergocalciferol (Vitamin D Cap) 50,000 interunit Q7D PO 04/10/17 21:00 05/10/17 20:59 Physical Exam Vital Signs Past 12 Hours Date Time Temp Pulse Resp B/P (MAP) Pulse Ox O2 Delivery O2 Flow Rate FiO2 04/04/17 07:13 Room Air 04/04/17 07:03 36.9 76 20 97/49 (65) 91 Room Air 04/04/17 04:53 36.6 66 18 101/56 (71) 97 Room Air 04/04/17 04:00 Room Air 04/04/17 00:17 36.7 80 18 100/54 (69) 94 Room Air 04/04/17 00:00 Room Air 04/03/17 20:00 Room Air Constitutional: General Apperance: heathly-appearing Level of Distress: mild distress Psychiatric: Mental Status: active & alert Head: normocephalic Eyes: EOM: EOMI ENMT: normal ENT inspection, hearing grossly normal Neck: supple, no masses Lungs: Respiratory effort: no dyspnea, good air movement Auscultation: breath sounds normal, no wheezing Cardiovascular: Heart Auscultation: RRR, no rubs, no gallops, II/ WSM Peripheral Pulses: Bruits: none appreciated Abdomen: Bowel Sounds: normal Inspection & Palpation: soft, no tenderness, guarding & rebound, no masses Musculoskeletal: normal strength (5/5 throughout) Extremities: no edema Neurologic: Cranial Nerves: grossly intact Sensation: grossly intact Data Laboratory Results: Last 24 Hours Test 04/03/17 14:10 04/03/17 19:45 04/04/17 05:16 White Blood Count 9.34 K/uL 8.88 K/uL Red Blood Count 4.38 M/uL 3.78 M/uL Hemoglobin 13.2 g/dL 11.4 g/dL Hematocrit 38.9 % 33.5 % Mean Corpuscular Volume 88.8 fL 88.6 fL Mean Corpuscular Hemoglobin 30.1 pg 30.2 pg Mean Corpuscular Hemoglobin Concent 33.9 g/dl 34.0 g/dl Platelet Count 304 K/uL 241 K/uL Mean Platelet Volume 10.2 fL 9.9 fL Neutrophils (%) (Auto) 62.6 % 77.3 % Lymphocytes (%) (Auto) 25.3 % 10.5 % Monocytes (%) (Auto) 8.8 % 11.7 % Eosinophils (%) (Auto) 2.8 % 0.1 % Basophils (%) (Auto) 0.3 % 0.1 % Neutrophils # (Auto) 5.85 K/uL 6.86 K/uL Lymphocytes # (Auto) 2.36 K/uL 0.93 K/uL Monocytes # (Auto) 0.82 K/uL 1.04 K/uL Eosinophils # (Auto) 0.26 K/uL 0.01 K/uL Basophils # (Auto) 0.03 K/uL 0.01 K/uL RDW Standard Deviation 43.5 fL 43.9 fL RDW Coefficient of Variation 13.4 % 13.6 % Immature Granulocyte % (Auto) 0.2 % 0.3 % Immature Granulocyte # (Auto) 0.02 K/uL 0.03 K/uL Prothrombin Time 9.5 SECONDS Prothromb Time International Ratio 0.9 Activated Partial Thromboplast Time 24.5 SECONDS Partial Thromboplastin Ratio 0.9 Sodium Level 138 mmol/L 140 mmol/L Potassium Level 4.0 mmol/L 3.9 mmol/L Chloride Level 103 mmol/L 105 mmol/L Carbon Dioxide Level 24 mmol/L 27 mmol/L Anion Gap 10.0 mmol/L 7.0 mmol/L Blood Urea Nitrogen 16 mg/dl 13 mg/dl Creatinine 0.79 mg/dl 0.62 mg/dl Est Creatinine Clear Calc Drug Dose 56.9 ml/min 72.4 ml/min Estimated GFR () 81.4 98.0 Estimated GFR (Non- 70.2 84.6 BUN/Creatinine Ratio 20.0 20.7 Random Glucose 98 mg/dl 103 mg/dl Calcium Level 9.1 mg/dl 8.3 mg/dl Magnesium Level 2.4 mg/dl 2.4 mg/dl Troponin I < 0.015 ng/ml Urine Color YELLOW Urine Appearance TURBID Urine pH 8.5 Urine Specific Datil 1.020 Urine Protein NEG Urine Glucose (UA) NEG Urine Ketones 2+ Urine Occult Blood NEG Urine Nitrite NEG Urine Bilirubin NEG Urine Urobilinogen NEG Urine Leukocyte Esterase SMALL Urine WBC (Auto) 5-10 /hpf Urine RBC (Auto) 10-30 /hpf Urine Hyaline Casts (Auto) 1-5 /lpf Urine Epithelial Cells (Auto) 20-30 /lpf Urine Bacteria (Auto) NEG Total Bilirubin 1.2 mg/dl Aspartate Amino Transf (AST/SGOT) 217 U/L Alanine Aminotransferase (ALT/SGPT) 205 U/L Alkaline Phosphatase 159 U/L Total Protein 5.9 gm/dl Albumin 2.9 gm/dl Globulin 2.9 gm/dl Albumin/Globulin Ratio 1.0 Imaging: Echocardiogram done this morning shows perhaps mild decreased left ventricular function but overall reasonably good left ventricular function. Possible mild aortic stenosis. No significant abnormality. EKG: Sinus rhythm, nonspecific ST-T abnormalities. No acute changes. Telemetry reviewed: Sinus rhythm, PVCs, periods of ventricular bigeminy Assessment & Plan 1. Fall: This appears to be a mechanical fall, there is no indication that she had loss of consciousness. 2. Cardiomyopathy: She has a long-standing very mild cardiomyopathy, she is asymptomatic and left ventricular ejection fraction is not significantly reduced. This should not interfere with her surgery. 3. PVCs: She has very frequent PVCs on monitoring, but does not have more complex arrhythmias. She does not seem to be aware of them. This should not interfere with surgery, we may want to quantify her PVCs with a Holter monitor as an outpatient. Thank you for allowing me to participate in her care.
--- NOTE | 2017-04-04 08:10 | ECHOCARDIOGRAM REPORT ---
*NOTICE TO RECEIVING CONSTITUTION PARTY AGENCY This information is strictly Confidential and protected under [place] law. [place] law prohibits you from making any further disclosure of this information unless further disclosure is expressly permitted by the written consent of the person to whom it pertains or is authorized by law. A general authorization for the release of medical or other information is not sufficient for this purpose. Hospital accepts no responsibility if the information is made available to any other person, INCLUDING THE PATIENT. Interpretation Summary * Name: AMRITA KIDD Study Date: 04/04/2017 06:19 AM BP: 101/56 mmHg * Patient Location: [facility]\S\[id number]\S\1 HR: 81 * : 1935 (M/d/yyyy) Gender: Female Height: 64 in * Age: 82 yrs Ethnicity: CA Weight: 174 lb * Ordering Physician: Casie Mora * Referring Physician: Self, Referred * Performed By: Maite Rodarte RCS * * Reason For Study: ISCHEMIC CARDIOMYOPATHY * BSA: 1.8 m2 * -- Conclusions -- * There is mild asymmetric left ventricular hypertrophy. * Left ventricular systolic function is normal. * Diastolic dysfunction, Grade II, consistent with elevated left atrial pressure. * There are regional wall motion abnormalities as specified. * The left atrium is moderately dilated. * Aortic valve sclerosis moderate, without significant aortic valvular stenosis. * There is mild mitral regurgitation. Procedure Details * A complete two-dimensional transthoracic echocardiogram was performed (2D, M-mode, Doppler and color flow Doppler). Left Ventricle * The left ventricle is normal in size. * There is mild asymmetric left ventricular hypertrophy. * Left ventricular systolic function is normal. * Ejection Fraction = 50-55%. * Diastolic dysfunction, Grade II, consistent with elevated left atrial pressure. * There are regional wall motion abnormalities as specified. * Mild apical inferior hypokinesis Right Ventricle * The right ventricle is normal size. Atria * The left atrium is moderately dilated. * Right atrial size is normal. Mitral Valve * The mitral valve is grossly normal. * There is mild mitral regurgitation. Tricuspid Valve * The tricuspid valve is not well visualized, but is grossly normal. * There is trace tricuspid regurgitation. Aortic Valve * Aortic valve sclerosis moderate, without significant aortic valvular stenosis. * No hemodynamically significant valvular aortic stenosis. * Trace aortic regurgitation. Great Vessels * The aortic root is normal size. Pericardium/Pleural * There is no pericardial effusion. Great Vessels * Normal inferior vena cava diameter and respiratory variation suggests normal central venous pressure. MMode 2D Measurements and Calculations IVSd 1.9 cm IVSs 2.2 cm LVIDd 4.4 cm LVIDs 3.3 cm LVPWd 0.89 cm LVPWs 1.7 cm IVS/LVPW 2.1 FS 25.3 % EDV(Teich) 85.7 ml ESV(Teich) 42.6 ml EF(Teich) 50.3 % EDV(cubed) 82.7 ml ESV(cubed) 34.4 ml EF(cubed) 58.4 % % IVS thick 18.3 % % LVPW thick 93.5 % LV mass(C)d 229.3 grams LV mass(C)dI 124.4 grams/m\S\2 LV mass(C)s 277.6 grams LV mass(C)sI 150.6 grams/m\S\2 SV(Teich) 43.1 ml SI(Teich) 23.4 ml/m\S\2 SV(cubed) 48.3 ml SI(cubed) 26.2 ml/m\S\2 Ao root diam 3.1 cm Ao root area 7.4 cm\S\2 ACS 1.3 cm LA dimension 3.6 cm LA/Ao 1.2 LVOT diam 2.0 cm LVOT area 3.3 cm\S\2 LVAd ap4 26.0 cm\S\2 LVLd ap4 7.7 cm EDV(MOD-sp4) 73.7 ml EDV(sp4-el) 75.2 ml LVAs ap4 18.1 cm\S\2 LVLs ap4 6.7 cm ESV(MOD-sp4) 44.7 ml ESV(sp4-el) 41.7 ml EF(MOD-sp4) 39.3 % EF(sp4-el) 44.5 % LVAd ap2 25.7 cm\S\2 LVLd ap2 7.4 cm EDV(MOD-sp2) 73.8 ml EDV(sp2-el) 76.1 ml LVAs ap2 17.8 cm\S\2 LVLs ap2 6.3 cm ESV(MOD-sp2) 42.8 ml ESV(sp2-el) 42.7 ml EF(MOD-sp2) 42.0 % EF(sp2-el) 43.9 % LVLd %diff -3.87 % EDV(MOD-bp) 75.1 ml LVLs %diff -6.30 % ESV(MOD-bp) 44.5 ml EF(MOD-bp) 40.8 % SV(MOD-sp4) 28.9 ml SI(MOD-sp4) 15.7 ml/m\S\2 SV(MOD-sp2) 31.0 ml SI(MOD-sp2) 16.8 ml/m\S\2 SV(MOD-bp) 30.6 ml SI(MOD-bp) 16.6 ml/m\S\2 SV(sp4-el) 33.5 ml SI(sp4-el) 18.1 ml/m\S\2 SV(sp2-el) 33.4 ml SI(sp2-el) 18.1 ml/m\S\2 Doppler Measurements and Calculations MV E max andie 85.2 cm/sec MV A max andie 85.2 cm/sec MV E/A 1.0 MV P1/2t max adnie 91.5 cm/sec MV P1/2t 53.9 msec MVA(P1/2t) 4.1 cm\S\2 MV dec slope 497.0 cm/sec\S\2 MV dec time 0.16 sec Ao V2 max 171.7 cm/sec Ao max PG 11.8 mmHg Ao max PG (full) 8.0 mmHg RAVINDER(V,A) 1.8 cm\S\2 RAVINDER(V,D) 1.8 cm\S\2 AI max andie 335.6 cm/sec AI max PG 45.1 mmHg AI dec slope 287.8 cm/sec\S\2 AI P1/2t 341.6 msec LV V1 max PG 3.8 mmHg LV V1 max 97.1 cm/sec MR max andie 446.9 cm/sec MR max PG 79.9 mmHg
[2017-04-04] MEDS ORDERED: PHENYLEPHRINE 100MCG/ML 5ML SYR ONE (08:34)
[2017-04-04] MEDS: CYANOCOBALAMIN 500 MCG TAB (VIT B-12) PO SCH (09:00)
[2017-04-04] MEDS ORDERED: PANTOprazole SOD 40 MG TAB PO PRN (09:00)
[2017-04-04] MEDS ORDERED: CHOLECALCIFEROL 1000 INTER.UNIT TAB PO SCH (09:00)
[2017-04-04] MEDS ORDERED: CEROVITE ADV FORMULA TAB PO SCH (09:00)
--- NOTE | 2017-04-04 09:22 | DIAGNOSTIC IMAGING REPORT ---
L HIP OR FILMS HISTORY: 82 years-old Female LEFT HIP TROCHNAIL AND ORIF acute comminuted fracture of the left intertrochanteric femur COMPARISON: Left hip radiographs 04/03/2017 TECHNIQUE: 5 spot fluoroscopic images of the left hip were obtained utilizing 92.2 seconds fluoroscopy time FINDINGS: There is been interval placement of an intratrochanteric nail with medullary skye fixating the previously noted displaced, angulated and comminuted acute fracture of the left intertrochanteric femur. There is improved alignment with persistent mild cortical offset and fragmentation seen within the region of the lesser trochanter. Single fixating screw is noted within the mid femoral shaft. Hardware appears intact. IMPRESSION: Improved alignment of the acute left intertrochanteric fracture status post placement of an intertrochanteric nail with medullary skye. The above report was generated using voice recognition software. It may contain grammatical, syntax or spelling errors. Electronically signed by: Ej Gutierrez M.D. 04/04/2017 9:21 AM Dictated Date/Time: 04/04/2017 9:19 AM
--- NOTE | 2017-04-04 09:25 | [facility] Post Operative Brief Note ---
Immediate Operative Summary Operative Date Apr 04, 2017. Pre-Operative Diagnosis Left hip comminuted intertrochanteric fracture with moderate displacement and angulation Post-Operative Diagnosis Same as preop Procedure(s) Performed Left Hip Trochanteric Nail Open Reduction Internal Fixation Surgeon Dr. Carcamo Clinical Informatics Director Surgeon(s) Juan C Ling PA-C Estimated Blood Loss 75 ml Findings Consistent with Post-Op Diagnosis Fluids (cc crystalloids) 800cc Specimens None per Surgeon Drains None Anesthesia Type Spinal MAC Complication(s) none Disposition Accompanied Pt To Recover: no Disposition: Recovery Room / PACU
[2017-04-04] MEDS ORDERED: ATROPINE SULFATE 0.1 MG/ML 5ML SYR IV PRN (09:30)
[2017-04-04] MEDS ORDERED: HYDROmorphone INJ 1 MG/ML SYR IV PRN (09:30)
[2017-04-04] MEDS ORDERED: FENTANYL CITRATE INJ 50 MCG/1 ML 2 ML VIAL IV PRN (09:30)
[2017-04-04] MEDS ORDERED: MEPERIDINE HCL 25 MG/ML CARP IV PRN (09:30)
[2017-04-04] MEDS ORDERED: LABETALOL HCL IV 5 MG/ML 20ML IV PRN (09:30)
[2017-04-04] MEDS ORDERED: ONDANSETRON INJ 2 MG/ML 2 ML VIAL IV PRN ×2 (09:30→09:45)
[2017-04-04] MEDS ORDERED: EpHEDrine SULFATE INJ 50 MG/ML AMP IV PRN (09:30)
[2017-04-04] MEDS ORDERED: NALOXONE HCL 0.4 MG/1 ML VIAL/CARP IV PRN (09:45)
[2017-04-04] MEDS ORDERED: ACETAMINOPHEN 325 MG TAB PO PRN (09:45)
[2017-04-04] MEDS ORDERED: OXYCODONE HCL IR 5 MG TAB (IMMEDIATE RELEASE) PO PRN (09:45)
[2017-04-04] MEDS ORDERED: MAGNESIUM HYDROXIDE SUSP 30 ML UDC PO PRN (09:45)
[2017-04-04] MEDS ORDERED: HYDROmorphone INJ 0.5 MG/0.5 ML SYR IV PRN (09:45)
[2017-04-04] MEDS ORDERED: BISACODYL 10 MG SUPP PR PRN (09:45)
--- NOTE | 2017-04-04 10:03 | OPERATIVE REPORT ---
DATE OF OPERATION: 04/04/2017 SURGEON: Dr. Carcamo. ARBOREAL SCIENTIST: Juan C Ling PA-C. No resident or fellow available. PREOPERATIVE DIAGNOSIS: Three-part intertrochanteric fracture, left hip, displaced. POSTOPERATIVE DIAGNOSIS: Same. OPERATION PERFORMED: Closed reduction internal fixation with locked intermediate length troch nail. 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 She was medically cleared and is here for fixation of her fracture. PROCEDURE: The patient properly identified, site verified, consent verified, 2 grams of Ancef confirmed as being given. The left lower extremity was carefully placed in traction with the well leg in a well leg mccullough and appropriate reduction carried out. The reduction was anatomic. The leg was then prepped and draped in usual routine fashion. The area was then identified with fluoro and a percutaneous wire placed after several adjustments. It was noted to be in excellent position and passed down the canal. Once this was done, an incision was made over that area and blunt dissection carried down to the femur, and then using a clincher awl and the reamer, the proximal femur was opened. Once this was complete, the nail was then seated. It was a 12-degree diameter, 130-degree angle skye that was 235 mm in length. Excellent positioning was done on AP and the lateral required a little bit adjustment in anteversion. Once this was done, the wire was then passed up the center to femoral head and then drilled appropriately with a cortical opening reamer and then the stepped reamer. 95 helical blade was then placed and impacted into position. It was an excellent length and excellent position on the low and middle side of the head on the AP and lateral views respectively. It was then locked into position. Traction was then released and the fracture compressed. A distal locking screw was then placed, it was 5 mm x 36 mm with excellent fixation and purchase. Multiple plane image at that point in time revealed excellent reduction of the fracture and hardware positioning. The procedure was then terminated. All instruments and fluid removed. The wound was irrigated and closed with #1 Vicryl for the fascial layer, 2-0 plain for the subcutaneous layer and stainless steel clips for skin. Appropriate dressing applied and the patient transferred to the recovery room in satisfactory condition, having tolerated the procedure well. ESTIMATED BLOOD LOSS: About 75 mL CRYSTALLOID: 800 mL DEEP VEIN THROMBOSIS PROPHYLAXIS: Coumadin. I attest to the content of the Intraoperative Record and any orders documented therein. Any exception s are noted below.
--- NOTE | 2017-04-04 10:17 | [facility] Operative Report ---
Operative Report Operative Date Apr 04, 2017. Pre-Operative Diagnosis Left hip comminuted intertrochanteric fracture with moderate displacement and angulation Post-Operative Diagnosis Left hip same as preop Procedure(s) Performed Left Hip Trochanteric Nail Open Reduction Internal Fixation Surgeon Dr. Carcamo Digital Art Director Surgeon(s) Juan C Ling PA-C Estimated Blood Loss 75 ml Findings left hip comminuted intertrochanteric fracture Fluids 800cc Specimens None per Surgeon Drains None Anesthesia Type Spinal MAC Complication(s) none Disposition no Recovery Room / PACU Indications This 82-year-old white female presented to the ED yesterday with left hip pain after falling in the hospital parking lot. She sustained an intertrochanteric fracture that was comminuted and moderately displaced. She elected to proceed with surgical intervention after being educated about potential risks and outcomes. Preoperative imaging was obtained. Description of Procedure Patient was taken to the operating room where she was given a spinal anesthetic and sedation. She was prepped and draped in usual sterile fashion. Please see Dr. Carcamo's operative report for specifics of the procedure. I was present for the entire case from initial patient positioning through final wound closure. Assistance was provided in patient positioning, tissue traction , hemostasis, hardware placement, and final wound closure. Patient was taken to the recovery room in satisfactory condition. I attest to the content of the Intraoperative Record and any orders documented therein. Any exceptions are noted below.
[2017-04-04] MEDS ORDERED: CEFTRIAXONE SOD INJ 1 GM in DEXTROSE 5% ADD-VANTAGE 50ML 50 ML IV ONE (11:00)
--- NOTE | 2017-04-04 11:23 | Anesthesiology Progress Note ---
Anesthesia Post Op Note Date & Time Apr 04, 2017 at 11:23 Vital Signs Pain Intensity: 0 Vital Signs Past 12 Hours Date Time Temp Pulse Resp B/P (MAP) Pulse Ox O2 Delivery O2 Flow Rate FiO2 04/04/17 11:17 37.5 79 16 100/46 (73) 95 Nasal Cannula 2 04/04/17 10:46 96/45 04/04/17 10:46 96/45 04/04/17 10:41 93/51 04/04/17 10:41 93/51 04/04/17 10:37 91/36 04/04/17 10:37 91/36 04/04/17 10:31 94/50 04/04/17 10:31 94/50 04/04/17 10:30 77 21 97 04/04/17 10:30 74 21 04/04/17 10:26 99/49 04/04/17 10:26 94/46 04/04/17 10:20 78 22 99/49 (65) 98 Nasal Cannula 2 04/04/17 10:10 70 21 96/40 (64) 99 Nasal Cannula 2 04/04/17 10:00 73 17 95/50 (71) 94 Nasal Cannula 2 04/04/17 09:40 73 21 94/51 (58) 96 Oxymask 10 04/04/17 09:30 36.4 79 14 90/48 (62) 99 Oxymask 10 04/04/17 07:13 Room Air 04/04/17 07:03 36.9 76 20 97/49 (65) 91 Room Air 04/04/17 04:53 36.6 66 18 101/56 (71) 97 Room Air 04/04/17 04:00 Room Air 04/04/17 00:17 36.7 80 18 100/54 (69) 94 Room Air 04/04/17 00:00 Room Air Notes Mental Status: alert / awake / arousable, participated in evaluation Pt Amnestic to Procedure: Yes Nausea / Vomiting: adequately controlled Pain: adequately controlled Airway Patency, RR, SpO2: stable & adequate BP & HR: stable & adequate Hydration State: stable & adequate Anesthetic Complications: no major complications apparent
[2017-04-04 12:14] VITALS: BP 98/47; PULSE 77; TEMP 36.7; O2SAT 98
[2017-04-04] MEDS: SODIUM CHLORIDE 0.9% 1000ML 1,000 ML IV SCH ×2 (12:19→18:15)
[2017-04-04] MEDS: HYDROmorphone INJ 0.5 MG/0.5 ML SYR IV PRN ×3 (12:47→20:39)
[2017-04-04] MEDS: OXYCODONE HCL IR 5 MG TAB (IMMEDIATE RELEASE) PO PRN (13:39)
[2017-04-04 15:46] VITALS: BP 116/55; PULSE 78; TEMP 36.5; O2SAT 95
[2017-04-04] MEDS ORDERED: KETOROLAC TROMETHAMINE 15 MG/ML VIAL IV. STA (15:50)
[2017-04-04] MEDS ORDERED: WARFARIN SOD 5 MG TAB PO SCH (16:00)
--- NOTE | 2017-04-04 16:03 | PROGRESS NOTE ---
DATE: 04/04/2017 SUBJECTIVE: Postop check status post left hip 3-part intertrochanteric displaced fracture, treated with locked troch nail. At this point in time the patient has some minor nausea but no vomiting. She denies chest pain, shortness of breath, fever or chills. OBJECTIVE: Vital signs are stable. She is afebrile. Her blood pressures are in the range that she came in with. She has no abdominal pain. Neurovascular check is baseline. Lower extremities has active toe extension, flexion; no sign of any compartment syndrome. Wound dressing clean, dry and intact. ASSESSMENT: Adjust pain medication go with Tylenol around the clock 1000 mg IV, loading dose of ketorolac 30 mg IV x1 now and then decreased to 15 mg q. 6 hours p.r.n. Try to avoid narcotics as it makes her nauseated. She needs to be up in a chair. She needs to mobilize, discontinue the [place].
--- NOTE | 2017-04-04 17:46 | Family Medicine Progress Note ---
Progress Note Date of Service Apr 04, 2017. Subjective Pt evaluation today including: conversation w/ patient, physical exam, chart review, lab review, review of studies Pain: Patient complaining of significant Left hip pain after surgery Voiding: mahajan catheter in place Patient appears in mild distress this morning after return from left hip surgery. The patient states the pain was worsened by her SCDs that were promptly removed. The patient also complained of burning over the left side of her back. Constitutional: No fever, No chills, No fatigue Respiratory: No cough, No shortness of breath Cardiovascular: No chest pain Abdomen: No pain, No nausea, No vomiting, No diarrhea, No constipation Musculoskeletal: + joint pain (left hip pain), No swelling, No calf pain All Other Systems: Reviewed and Negative Medications Current Inpatient Medications Medications (Trade) Dose Ordered Sig/Lashaun Route Start Time Stop Time Status Last Admin Dose Admin Ondansetron HCl (Zofran Inj) 4 mg Q6H PRN IV 04/03/17 16:15 05/03/17 16:14 04/03/17 19:16 4 MG Naloxone HCl (Narcan Inj) 0.1 mg PRN PRN IV 04/03/17 16:15 05/03/17 16:14 Polyethylene (Miralax Powder Packet) 17 gm DAILY PRN PO 04/03/17 16:15 05/03/17 16:14 Atenolol (Tenormin Tab) 25 mg QPM PO 04/04/17 21:00 05/04/17 20:59 Pantoprazole Sodium (Protonix Tab) 40 mg DAILY PRN PO 04/04/17 09:00 05/04/17 08:59 Cyanocobalamin (Vitamin B-12 Tab) 3,000 mcg QAM PO 04/04/17 09:00 05/04/17 08:59 Acetaminophen (Tylenol Tab) 650 mg Q4H PRN PO 04/03/17 16:30 05/03/17 16:29 Future Hold Al Hydrox/Mg Hydrox/Simethicone (Maalox Max Susp) 15 ml Q4H PRN PO 04/03/17 16:30 05/03/17 16:29 Ergocalciferol (Vitamin D Cap) 50,000 interunit Q7D PO 04/10/17 21:00 05/10/17 20:59 Sodium Chloride 1,000 ml @ 125 mls/hr Q8H IV 04/04/17 10:15 05/04/17 10:14 04/04/17 12:19 125 MLS/HR Acetaminophen (Tylenol Tab) 650 mg Q6H PRN PO 04/04/17 09:45 05/04/17 09:44 04/04/17 13:38 650 MG Oxycodone HCl (Roxicodone Immediate Rel Tab) 5 mg Q4H PRN PO 04/04/17 09:45 04/18/17 09:44 Oxycodone HCl (Roxicodone Immediate Rel Tab) 10 mg Q4H PRN PO 04/04/17 09:45 04/18/17 09:44 04/04/17 13:39 10 MG Hydromorphone HCl (Dilaudid Inj) 0.25 mg Q20M PRN IV 04/04/17 09:45 04/18/17 09:44 Hydromorphone HCl (Dilaudid Inj) 0.5 mg Q20M PRN IV 04/04/17 09:45 04/18/17 09:44 04/04/17 14:16 0.5 MG Naloxone HCl (Narcan Inj) 0.4 mg Q1M PRN IV 04/04/17 09:45 05/04/17 09:44 Senna/Docusate Sodium (Senokot S Tab) 2 tab HS PO 04/04/17 21:00 05/04/17 20:59 Magnesium Hydroxide (Milk Of Magnesia Susp) 30 ml DAILY PRN PO 04/04/17 09:45 05/04/17 09:44 Bisacodyl (Dulcolax Supp) 10 mg DAILY PRN [place] 04/04/17 09:45 05/04/17 09:44 Losartan Potassium (coZAAR TAB) 50 mg QPM PO 04/04/17 21:00 05/04/17 20:59 Acetaminophen 1000 mg/Empty Bag 100 ml @ 400 mls/hr Q8H IV 04/04/17 18:00 05/04/17 17:59 Ketorolac Tromethamine (Toradol Inj) 15 mg Q6H PRN IV 04/04/17 16:00 04/09/17 15:59 Objective Vital Signs Date Time Temp Pulse Resp B/P (MAP) Pulse Ox O2 Delivery O2 Flow Rate FiO2 04/04/17 16:00 Room Air 04/04/17 15:46 36.5 78 19 116/55 (75) 95 Nasal Cannula 2.0 15/18 12:14 36.7 77 16 98/47 (64) 98 Nasal Cannula 2.0 04/04/18 11:37 77 23 215/18 11:37 77 23 95 04/04/18 11:36 92/44 04/04/18 11:32 76 25 96 15/18 11:32 76 25 15/18 11:31 96/46 04/04/18 11:27 74 22 15/18 11:27 74 22 96 04/04/18 11:26 98/46 04/04/18 11:22 77 22 18 11:22 78 22 95 15/18 11:21 100/46 04/04/18 11:17 37.5 79 16 100/46 (73) 95 Nasal Cannula 2 04/04/17 11:17 75 29 96 04/04/17 11:17 75 29 04/04/18 11:16 100/53 18 11:12 81 15 96 04/04/18 11:12 80 15 18 11:11 87/50 04/04/17 11:07 78 19 95 18 11:07 81 19 04/04/18 11:06 98/40 04/04/18 11:02 80 23 04/04/18 11:02 81 23 96 04/04/18 11:01 89/47 04/04/17 10:57 77 21 96 04/04/18 10:57 75 21 04/04/18 10:56 91/43 18 10:52 75 23 98 04/04/18 10:52 76 23 04/04/18 10:51 95/52 04/04/18 10:47 82 21 97 15/18 10:47 80 21 04/04/18 10:46 96/45 15/18 10:46 96/45 04/04/18 10:41 93/51 215/18 10:41 93/51 15/18 10:37 91/36 15/18 10:37 91/36 2/15/18 10:31 94/50 04/04/17 10:31 94/50 04/04/17 10:30 77 21 97 04/04/17 10:30 74 21 04/04/17 10:26 99/49 04/04/17 10:26 94/46 04/04/17 10:20 78 22 99/49 (65) 98 Nasal Cannula 2 04/04/17 10:10 70 21 96/40 (64) 99 Nasal Cannula 2 04/04/17 10:00 73 17 95/50 (71) 94 Nasal Cannula 2 04/04/17 09:40 73 21 94/51 (58) 96 Oxymask 10 04/04/17 09:30 36.4 79 14 90/48 (62) 99 Oxymask 10 04/04/17 07:13 Room Air 04/04/17 07:03 36.9 76 20 97/49 (65) 91 Room Air 04/04/17 04:53 36.6 66 18 101/56 (71) 97 Room Air 04/04/17 04:00 Room Air 04/04/17 00:17 36.7 80 18 100/54 (69) 94 Room Air 04/04/17 00:00 Room Air 04/03/17 20:00 Room Air 04/03/17 19:30 36.7 81 16 116/72 (87) 91 Room Air 04/03/17 18:11 36.7 74 16 139/69 (92) 99 Nasal Cannula 2.0 04/03/17 17:16 99 Room Air Physical Exam General Appearance: WD/WN, no apparent distress Eyes: normal inspection, sclerae normal Neck: supple Respiratory/Chest: chest non-tender, lungs clear, normal breath sounds Cardiovascular: regular rate, rhythm, no edema Abdomen: normal bowel sounds, non tender, soft Extremities: no pedal edema, no calf tenderness, + pertinent finding (Left hip tenderness) Neurologic/Psychiatric: alert, normal mood/affect, oriented x 3 Laboratory Results Results Past 24 Hours Test 04/03/17 19:45 04/04/17 05:16 Range/Units Urine Color YELLOW Urine Appearance TURBID CLEAR Urine pH 8.5 4.5-7.5 Urine Specific [place] 1.020 1.000-1.030 Urine Protein NEG NEG Urine Glucose (UA) NEG NEG Urine Ketones 2+ NEG Urine Occult Blood NEG NEG Urine Nitrite NEG NEG Urine Bilirubin NEG NEG Urine Urobilinogen NEG NEG Urine Leukocyte Esterase SMALL NEG Urine WBC (Auto) 5-10 0-5 /hpf Urine RBC (Auto) 10-30 0-4 /hpf Urine Hyaline Casts (Auto) 1-5 0-5 /lpf Urine Epithelial Cells (Auto) 20-30 0-5 /lpf Urine Bacteria (Auto) NEG NEG White Blood Count 8.88 4.8-10.8 K/uL Red Blood Count 3.78 4.2-5.4 M/uL Hemoglobin 11.4 12.0-16.0 g/dL Hematocrit 33.5 37-47 % Mean Corpuscular Volume 88.6 80-100 fL Mean Corpuscular Hemoglobin 30.2 25-34 pg Mean Corpuscular Hemoglobin Concent 34.0 32-36 g/dl Platelet Count 241 130-400 K/uL Mean Platelet Volume 9.9 7.4-10.4 fL Neutrophils (%) (Auto) 77.3 % Lymphocytes (%) (Auto) 10.5 % Monocytes (%) (Auto) 11.7 % Eosinophils (%) (Auto) 0.1 % Basophils (%) (Auto) 0.1 % Neutrophils # (Auto) 6.86 1.4-6.5 K/uL Lymphocytes # (Auto) 0.93 1.2-3.4 K/uL Monocytes # (Auto) 1.04 0.11-0.59 K/uL Eosinophils # (Auto) 0.01 0-0.5 K/uL Basophils # (Auto) 0.01 0-0.2 K/uL RDW Standard Deviation 43.9 36.4-46.3 fL RDW Coefficient of Variation 13.6 11.5-14.5 % Immature Granulocyte % (Auto) 0.3 % Immature Granulocyte # (Auto) 0.03 0.00-0.02 K/uL Sodium Level 140 136-145 mmol/L Potassium Level 3.9 3.5-5.1 mmol/L Chloride Level 105 98-107 mmol/L Carbon Dioxide Level 27 21-32 mmol/L Anion Gap 7.0 3-11 mmol/L Blood Urea Nitrogen 13 7-18 mg/dl Creatinine 0.62 0.60-1.20 mg/dl Est Creatinine Clear Calc Drug Dose 72.4 ml/min Estimated GFR () 98.0 Estimated GFR (Non- 84.6 BUN/Creatinine Ratio 20.7 10-20 Random Glucose 103 70-99 mg/dl Calcium Level 8.3 8.5-10.1 mg/dl Magnesium Level 2.4 1.8-2.4 mg/dl Total Bilirubin 1.2 0.2-1 mg/dl Aspartate Amino Transf (AST/SGOT) 217 15-37 U/L Alanine Aminotransferase (ALT/SGPT) 205 12-78 U/L Alkaline Phosphatase 159 45-117 U/L Total Protein 5.9 6.4-8.2 gm/dl Albumin 2.9 3.4-5.0 gm/dl Globulin 2.9 2.5-4.0 gm/dl Albumin/Globulin Ratio 1.0 0.9-2 Microbiology Results 04/03/17 MRSA DNA Surveillance Screen - Final, Complete Specimen Negative for MRSA by DNA Probe Assessment and Plan Patient is an 82 year old female that presented yesterday with a fall and found to have a left hip fracture Left Hip Trochanteric Nail Open Reduction Internal Fixation - POD #0 - Pelvic X-ray: Acute moderately displaced comminuted intertrochanteric fracture of the left femur with significant associated angulation. - Hip X-ray: Intertrochanteric fracture left hip. Mild superior migration left femoral shaft. - Ancef x 2 doses - Pain control with Tylenol, Toradol, Oxycodone, and Dilaudid as needed for more severe pain - NS @ 125 ml/hr - Admit to Telemetry Transaminitis - AST - 217, ALT - 205, Alk Phos - 159 - Acute Hepatitis Panel - Complete Abdominal US Hypertension - Resume Losartan Constipation - Continue home Senna GERD - Continue home Nexium History of Cardiomyopathy - ECHO: * There is mild asymmetric left ventricular hypertrophy. * Left ventricular systolic function is normal. * Diastolic dysfunction, Grade II, consistent with elevated left atrial pressure. * There are regional wall motion abnormalities as specified. * The left atrium is moderately dilated. * Aortic valve sclerosis moderate, without significant aortic valvular stenosis. * There is mild mitral regurgitation. - EKG: NSR and non-specific ST changes - Cleared for surgery - Continue home atenolol DVT Prophylaxis - SCDs Code Status - Full Resuscitation Resident Tracking Resident Involvement: Resident Care Provided Care Provided: Adult Hospital Medicine
[2017-04-04] MEDS: ACETAMINOPHEN IV 1,000 MG in EMPTY BAG 0 ML IV SCH (17:59)
[2017-04-04 19:36] LABS: HEP C IGG 13 YRS+OLDER_RFLX NEG (NEG)
[2017-04-04 19:51] VITALS: BP 104/48; PULSE 80; TEMP 36.7; O2SAT 100
[2017-04-04] MEDS: LOSARTAN POTASSIUM 50 MG TAB PO SCH (20:42)
[2017-04-04] MEDS: DOCUSATE SODIUM/SENNA 50/8.6MG TAB PO SCH (20:44)
[2017-04-05] VITALS (8 sets, daily range): BP systolic 92–128; BP diastolic 45–72; PULSE 57–90; TEMP 36.6–36.9; O2SAT 94–99
[2017-04-05] MEDS: ACETAMINOPHEN IV 1,000 MG in EMPTY BAG 0 ML IV SCH ×3 (02:42→17:28)
[2017-04-05] MEDS: SODIUM CHLORIDE 0.9% 1000ML 1,000 ML IV SCH (02:43)
[2017-04-05] MEDS: HYDROmorphone INJ 0.5 MG/0.5 ML SYR IV PRN (06:07)
[2017-04-05 06:56] LABS: HEMATOCRIT 29.4 % (37-47); HEMOGLOBIN 9.8 g/dL (12.0-16.0); MEAN CELL VOLUME 89.9 fL (80-100); MEAN CORPUSCULAR HGB CONC 33.3 g/dl (32-36); MEAN PLATELET VOLUME 9.8 fL (7.4-10.4); PLATELET COUNT 183 K/uL (130-400); RED CELL DISTRIBUTION WIDTH CV 13.8 % (11.5-14.5); RED CELL DISTRIBUTION WIDTH SD 45.6 fL (36.4-46.3); WHITE BLOOD COUNT 7.22 K/uL (4.8-10.8)
[2017-04-05 07:27] LABS: CALCIUM 7.6 mg/dl (8.5-10.1); CREATININE 0.59 mg/dl (0.60-1.20); POTASSIUM 3.6 mmol/L (3.5-5.1)
--- NOTE | 2017-04-05 07:48 | Anesthesiology Progress Note ---
Anesthesia Post Op Note Date & Time Apr 05, 2017 at 07:47 Vital Signs Pain Intensity: 7 Vital Signs Past 12 Hours Date Time Temp Pulse Resp B/P (MAP) Pulse Ox O2 Delivery O2 Flow Rate FiO2 04/05/17 04:00 36.7 67 20 99/45 (63) 99 Nasal Cannula 3.5 04/05/17 04:00 Nasal Cannula 2.0 04/05/17 00:00 36.6 74 22 105/50 (68) 98 Nasal Cannula 1.0 04/04/17 23:59 Nasal Cannula 2.0 04/04/17 20:00 Nasal Cannula 2.0 04/04/17 19:51 36.7 80 15 104/48 (66) 100 Nasal Cannula 2.0 Notes Mental Status: alert / awake / arousable Pt Amnestic to Procedure: No Nausea / Vomiting: adequately controlled Pain: improving with treatment Airway Patency, RR, SpO2: stable & adequate BP & HR: stable & adequate Hydration State: stable & adequate Neuraxial Anesthesia: sensory block resolved Anesthetic Complications: no major complications apparent Anesthetic Complications: pt was able to hear people talking during case but was not anxious or uncomfortable.
--- NOTE | 2017-04-05 08:38 | PROGRESS NOTE ---
DATE: 04/05/2017 SUBJECTIVE: Postop day #1 status post ORIF of 3-part displaced intertrochanteric fracture of the left hip. At this point in time, the patient's pain is reasonably managed. She denies any chest pain, shortness of breath, fever, chills, nausea or vomiting. Wound dressing clean, dry and intact. Abdomen is soft, nontender. She is obtaining an ultrasound of her abdomen now for assessing her liver enzymes. Legs are without any evidence of DVT, baseline neurologic functioning with polio on the right. ASSESSMENT AND PLAN: At this point in time, this patient needs to get up, needs to get moving, needs PT and needs OT. Hep-Lock her IV fluids and encourage p.o. fluids. Needs to get out of bed. Needs to go to an orthopedic surgical floor to get appropriate rehab and comfort with moving and rolling and getting into a chair, etc. Suggest transfer to floor [facility].
--- NOTE | 2017-04-05 09:18 | DIAGNOSTIC IMAGING REPORT ---
ABDOMEN COMPLETE (US) CLINICAL HISTORY: 82 years-old Female presenting with Transaminitis. TECHNIQUE: Real-time grayscale and limited color Doppler ultrasound imaging of the abdomen was performed. COMPARISON: None. FINDINGS: Pancreas: Visualized portions of the pancreatic head and body normal. Liver: Normal echogenicity and echotexture. The liver measures 13.4 cm in maximal sagittal dimension. No sonographic evidence of hepatic mass. Main portal vein patent with normal directional flow. Biliary: No intrahepatic biliary ductal dilatation. Common bile duct measures up to 9 mm in diameter. Gallbladder: Surgically absent. Spleen: Limited visualization though grossly normal. Kidneys: Parapelvic cysts versus pelvocaliectasis. Right kidney measures 10.5 cm, and left kidney measures 10.7 cm. Vasculature: Visualized portions of the IVC and abdominal aorta normal. Ascites: None. IMPRESSION: 1. Sonographically normal liver. 2. Post cholecystectomy with mild dilatation of the common bile duct likely reservoir effect in the post cholecystectomy state. 3. Bilateral parapelvic renal cysts versus pelvocaliectasis/hydronephrosis. If there is clinical concern for urinary obstruction, contrast-enhanced CT could be considered. Electronically signed by: Ibrahima Galo M.D. 04/05/2017 9:16 AM Dictated Date/Time: 04/05/2017 9:13 AM
[2017-04-05] MEDS: OXYCODONE HCL IR 5 MG TAB (IMMEDIATE RELEASE) PO PRN ×3 (09:21→21:19)
[2017-04-05] MEDS: CYANOCOBALAMIN 500 MCG TAB (VIT B-12) PO SCH (09:22)
--- NOTE | 2017-04-05 09:56 | Cardiology Follow-Up ---
Subjective Date of Service: Apr 05, 2017. Pt evaluation today including: conversation w/ patient, physical exam, chart review, lab review, review of studies, review of inpatient medication list, conversation w/ attending History of Present Illness The patient is an 82-year-old female who sustained a mechanical fall on 2017 resulting in a left hip comminuted intertrochanteric fracture with displacement. She underwent left hip trochanteric nail open reduction internal fixation yesterday with Dr. Carcamo. She was noted to be relatively hypotensive postoperatively with systolic blood pressure in the 90s and 100s on average. Her atenolol and losartan were therefore held last evening. She is currently being seen in her room at 209. She reports that her left hip pain is currently controlled. She denies any chest discomfort or shortness of breath. She denies palpitations, lightheadedness, syncope, or presyncope. Review of systems: As noted in HPI. All other 10 point ROS reviewed and otherwise negative. Social History Smoking Status: Never Smoker History of Alcohol Use: Yes (OCCASSIONALLY) Objective Vital Signs Past 12 Hours Date Time Temp Pulse Resp B/P (MAP) Pulse Ox O2 Delivery O2 Flow Rate FiO2 04/05/17 07:51 36.9 75 16 92/54 (67) 97 04/05/17 04:00 36.7 67 20 99/45 (63) 99 Nasal Cannula 3.5 04/05/17 04:00 Nasal Cannula 2.0 04/05/17 00:00 36.6 74 22 105/50 (68) 98 Nasal Cannula 1.0 04/04/17 23:59 Nasal Cannula 2.0 Last Recorded Weight-Kilograms: 71.500 Physical Exam Constitutional: General Apperance: heathly-appearing Level of Distress: NAD Lungs: Respiratory effort: no dyspnea, good air movement Auscultation: breath sounds normal, no wheezing Cardiovascular: Heart Auscultation: RRR, no rubs, no gallops, II/ WSM Peripheral Pulses: Bruits: none appreciated Extremities: no cyanosis, no edema, no clubbing Data Laboratory Results: Last 24 Hours Test 04/04/17 18:00 04/05/17 06:26 04/05/17 08:37 Hepatitis B Surface Antigen NEG Hepatitis C Antibody NEG White Blood Count 7.22 K/uL Red Blood Count 3.27 M/uL Hemoglobin 9.8 g/dL Hematocrit 29.4 % Mean Corpuscular Volume 89.9 fL Mean Corpuscular Hemoglobin 30.0 pg Mean Corpuscular Hemoglobin Concent 33.3 g/dl RDW Standard Deviation 45.6 fL RDW Coefficient of Variation 13.8 % Platelet Count 183 K/uL Mean Platelet Volume 9.8 fL Sodium Level 138 mmol/L Potassium Level 3.6 mmol/L Chloride Level 107 mmol/L Carbon Dioxide Level 24 mmol/L Anion Gap 7.0 mmol/L Blood Urea Nitrogen 9 mg/dl Creatinine 0.59 mg/dl Est Creatinine Clear Calc Drug Dose 72.5 ml/min Estimated GFR () 99.6 Estimated GFR (Non- 86.0 BUN/Creatinine Ratio 15.1 Random Glucose 102 mg/dl Calcium Level 7.6 mg/dl Echo 04/04/17: Mild asymmetric left ventricular hypertrophy. Left ventricular systolic function is normal. Diastolic dysfunction, Grade II, consistent with elevated left atrial pressure. Mild apical inferior hypokinesis. The left atrium is moderately dilated. Aortic valve sclerosis moderate, without significant aortic valvular stenosis. Mild mitral regurgitation. Telemetry reviewed: Sinus rhythm, frequent PVCs, periods of ventricular bigeminy, one 6 beat run of VT Assessment and Plan ASSESSMENT/PLAN: 1. Postop day #1 status post ORIF of displace intertrochanteric fracture of left hip: Per orthopedics. 2. 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 Her EF has normalized with echocardiogram during this admission demonstrated an EF of 50-55%. 3. PVCs: She has had frequent PVCs on monitoring as well as a 6 beat run of VT. Recommend restarting her beta trang therapy and continue to monitor her blood pressure closely. She should also have a Holter monitor as an outpatient to better quantify her PVCs. 4. Hypertension: Her BP has actually been relatively low during the hospitalization, but she is asymptomatic with this. Recommend restarting atenolol given her frequent PVCs and short run of VT noted on monitoring. Her losartan can continue to be held if her blood pressure remains low. The patient was discussed with Dr. Harp, and the plan was made in collaboration with him. Pt seen and examined. Agree with above. Armando Harp MD
[2017-04-05 09:59] LABS: ALBUMIN 2.6 gm/dl (3.4-5.0); TOTAL PROTEIN 5.5 gm/dl (6.4-8.2)
[2017-04-05 10:05] LABS: INR 0.9 (0.9-1.1)
--- NOTE | 2017-04-05 14:59 | Family Medicine Progress Note ---
Progress Note Date of Service Apr 05, 2017. Subjective Pt evaluation today including: conversation w/ patient, physical exam, chart review, lab review, review of studies Pain: No pain reported this morning Voiding: no voiding problems, no incontinence Patient is resting comfortably sitting upright in bedside chair this morning, with no acute complaints. The patient appears much more comfortable and states that at this time she has no acute pain in that it has been well controlled since yesterday evening. Constitutional: No fever, No chills, No sweats Respiratory: No cough, No sputum, No wheezing, No shortness of breath Cardiovascular: No chest pain, No palpitations Breast: No nipple discharge Abdomen: No pain, No nausea, No vomiting, No diarrhea, No constipation Female : No dysuria Medications Current Inpatient Medications Medications (Trade) Dose Ordered Sig/Lashaun Route Start Time Stop Time Status Last Admin Dose Admin Ondansetron HCl (Zofran Inj) 4 mg Q6H PRN IV 04/03/17 16:15 05/03/17 16:14 04/03/17 19:16 4 MG Naloxone HCl (Narcan Inj) 0.1 mg PRN PRN IV 04/03/17 16:15 05/03/17 16:14 Polyethylene (Miralax Powder Packet) 17 gm DAILY PRN PO 04/03/17 16:15 05/03/17 16:14 Atenolol (Tenormin Tab) 25 mg QPM PO 04/04/17 21:00 05/04/17 20:59 Pantoprazole Sodium (Protonix Tab) 40 mg DAILY PRN PO 04/04/17 09:00 05/04/17 08:59 Cyanocobalamin (Vitamin B-12 Tab) 3,000 mcg QAM PO 04/04/17 09:00 05/04/17 08:59 04/05/17 09:22 3,000 MCG Acetaminophen (Tylenol Tab) 650 mg Q4H PRN PO 04/03/17 16:30 05/03/17 16:29 Future Hold Al Hydrox/Mg Hydrox/Simethicone (Maalox Max Susp) 15 ml Q4H PRN PO 04/03/17 16:30 05/03/17 16:29 Ergocalciferol (Vitamin D Cap) 50,000 interunit Q7D PO 04/10/17 21:00 05/10/17 20:59 Acetaminophen (Tylenol Tab) 650 mg Q6H PRN PO 04/04/17 09:45 05/04/17 09:44 04/04/17 13:38 650 MG Oxycodone HCl (Roxicodone Immediate Rel Tab) 5 mg Q4H PRN PO 04/04/17 09:45 04/18/17 09:44 Oxycodone HCl (Roxicodone Immediate Rel Tab) 10 mg Q4H PRN PO 04/04/17 09:45 04/18/17 09:44 04/05/17 14:15 10 MG Hydromorphone HCl (Dilaudid Inj) 0.25 mg Q20M PRN IV 04/04/17 09:45 04/18/17 09:44 Hydromorphone HCl (Dilaudid Inj) 0.5 mg Q20M PRN IV 04/04/17 09:45 04/18/17 09:44 04/05/17 06:07 0.5 MG Naloxone HCl (Narcan Inj) 0.4 mg Q1M PRN IV 04/04/17 09:45 05/04/17 09:44 Senna/Docusate Sodium (Senokot S Tab) 2 tab HS PO 04/04/17 21:00 05/04/17 20:59 04/04/17 20:44 2 TAB Magnesium Hydroxide (Milk Of Magnesia Susp) 30 ml DAILY PRN PO 04/04/17 09:45 05/04/17 09:44 Bisacodyl (Dulcolax Supp) 10 mg DAILY PRN [place] 04/04/17 09:45 05/04/17 09:44 Losartan Potassium (coZAAR TAB) 50 mg QPM PO 04/04/17 21:00 05/04/17 20:59 Acetaminophen 1000 mg/Empty Bag 100 ml @ 400 mls/hr Q8H IV 04/04/17 18:00 05/04/17 17:59 04/05/17 09:23 400 MLS/HR Ketorolac Tromethamine (Toradol Inj) 15 mg Q6H PRN IV 04/04/17 16:00 04/09/17 15:59 Warfarin Sodium (Coumadin Tab) 5 mg DAILY@16 PO 04/05/17 16:00 04/05/17 16:01 Objective Vital Signs Date Time Temp Pulse Resp B/P (MAP) Pulse Ox O2 Delivery O2 Flow Rate FiO2 04/05/17 11:00 Room Air 04/05/17 11:00 36.7 90 16 112/68 (83) 94 Room Air 04/05/17 10:39 36.9 75 16 97 3.5 04/05/17 08:00 Room Air 04/05/17 07:51 36.9 75 16 92/54 (67) 97 04/05/17 04:00 36.7 67 20 99/45 (63) 99 Nasal Cannula 3.5 04/05/17 04:00 Nasal Cannula 2.0 04/05/17 00:00 36.6 74 22 105/50 (68) 98 Nasal Cannula 1.0 04/04/17 23:59 Nasal Cannula 2.0 04/04/17 20:00 Nasal Cannula 2.0 04/04/17 19:51 36.7 80 15 104/48 (66) 100 Nasal Cannula 2.0 04/04/17 16:00 Room Air 04/04/17 15:46 36.5 78 19 116/55 (75) 95 Nasal Cannula 2.0 Physical Exam General Appearance: WD/WN, no apparent distress, + pertinent finding (Patient sitting upright in chair with no complaints of left hip pain.) Eyes: normal inspection, sclerae normal Neck: supple, trachea midline Respiratory/Chest: chest non-tender, lungs clear, normal breath sounds Cardiovascular: regular rate, rhythm, no edema, no gallop Abdomen: normal bowel sounds, non tender, soft Extremities: no calf tenderness, + pertinent finding (Dressing over the left hip is clean, dry, and intact. Patient denies any acute tenderness at this time.) Neurologic/Psychiatric: alert, normal mood/affect, oriented x 3 Laboratory Results Results Past 24 Hours Test 04/04/17 18:00 04/05/17 06:26 04/05/17 09:42 Range/Units Hepatitis B Surface Antigen NEG NEG Hepatitis C Antibody NEG NEG White Blood Count 7.22 4.8-10.8 K/uL Red Blood Count 3.27 4.2-5.4 M/uL Hemoglobin 9.8 12.0-16.0 g/dL Hematocrit 29.4 37-47 % Mean Corpuscular Volume 89.9 80-100 fL Mean Corpuscular Hemoglobin 30.0 25-34 pg Mean Corpuscular Hemoglobin Concent 33.3 32-36 g/dl RDW Standard Deviation 45.6 36.4-46.3 fL RDW Coefficient of Variation 13.8 11.5-14.5 % Platelet Count 183 130-400 K/uL Mean Platelet Volume 9.8 7.4-10.4 fL Sodium Level 138 136-145 mmol/L Potassium Level 3.6 3.5-5.1 mmol/L Chloride Level 107 98-107 mmol/L Carbon Dioxide Level 24 21-32 mmol/L Anion Gap 7.0 3-11 mmol/L Blood Urea Nitrogen 9 7-18 mg/dl Creatinine 0.59 0.60-1.20 mg/dl Est Creatinine Clear Calc Drug Dose 72.5 ml/min Estimated GFR () 99.6 Estimated GFR (Non- 86.0 BUN/Creatinine Ratio 15.1 10-20 Random Glucose 102 70-99 mg/dl Calcium Level 7.6 8.5-10.1 mg/dl Total Bilirubin 1.3 0.2-1 mg/dl Direct Bilirubin 0.4 0-0.2 mg/dl Aspartate Amino Transf (AST/SGOT) 115 15-37 U/L Alanine Aminotransferase (ALT/SGPT) 160 12-78 U/L Alkaline Phosphatase 153 45-117 U/L Total Protein 5.5 6.4-8.2 gm/dl Albumin 2.6 3.4-5.0 gm/dl Prothrombin Time 9.9 9.0-12.0 SECONDS Prothromb Time International Ratio 0.9 0.9-1.1 Assessment and Plan Patient is an 82 year old female that presented yesterday with a fall and found to have a left hip fracture Left Hip Trochanteric Nail Open Reduction Internal Fixation - POD #1 - Pelvic X-ray: Acute moderately displaced comminuted intertrochanteric fracture of the left femur with significant associated angulation. - Hip X-ray: Intertrochanteric fracture left hip. Mild superior migration left femoral shaft. - Ancef x 2 doses - Pain well-controlled at this time with IV Tylenol, and has Dilaudid IV for breakthrough pain - Patient tolerating diet so discontinued IV fluids - Patient moved to surgical floor Transaminitis - Pharmacological vs Genetic vs Infectious - History of cholecystectomy - LFTs trending down --> AST - 217 --> 115, ALT - 205 --> 160, Alk Phos - 159 -- > 153 - Acute Hepatitis Panel --> Hep B negative - Complete Abdominal US --> No acute liver abnormalities Hypertension - Resume Losartan --> held this morning due to hypotension Constipation - Continue home Senna GERD - Continue home Nexium History of Cardiomyopathy - ECHO: * There is mild asymmetric left ventricular hypertrophy. * Left ventricular systolic function is normal. * Diastolic dysfunction, Grade II, consistent with elevated left atrial pressure. * There are regional wall motion abnormalities as specified. * The left atrium is moderately dilated. * Aortic valve sclerosis moderate, without significant aortic valvular stenosis. * There is mild mitral regurgitation. - EKG: NSR and non-specific ST changes - Cleared for surgery - Continue home atenolol --> held this morning due to hypotension DVT Prophylaxis - SCDs - Coumadin will be started this evening Code Status - Full Resuscitation Resident Tracking Resident Involvement: Resident Care Provided Care Provided: Adult Hospital Medicine
[2017-04-05] MEDS ORDERED: WARF2TAB PO (15:54)
[2017-04-05] MEDS ORDERED: WARFARIN SOD 5 MG TAB PO SCH (16:00)
--- NOTE | 2017-04-05 16:01 | Discharge Instructions ---
Discharge Instructions Date of Service Apr 05, 2017. Admission Reason for Admission: Hip Fracture Discharge Discharge Diagnosis / Problem: Left hip s/p ORIF with trochanteric nail Discharge Goals Goal(s): Decrease discomfort, Improve function, Increase independence, Improve disease control Activity Recommendations Activity Level: Up Ad Preethi Therapies: Physical Therapy, Weight Bearing Status (50% Left leg) Weightbearing Status: Left partial (50%) Lifting Limitations: none Exercise/Sports Limitations: until after follow-up appointment Shower/Bathe: keep incision dry . Additional Information Patient informed of condition: Yes Advance Directives: Yes DNR: No Level of Care: Acute Rehab Communicable Disease: No Prognosis: Stable Juarez Catheter: No Instructions / Follow-Up Instructions / Follow-Up New Medicine: * You will likely be taking one or more of these medicines: 1. Percocet - Take, as directed, when you need it, every four to six hours to control your pain. 2. Coumadin - Thins your blood to lessen the chance of forming a blood clot. The dose of this is different for each person and is based on your blood tests that are done twice a week. * The most common side effects of pain medicine and iron are nausea and constipation. If nausea or constipation is too much of a problem or if you have any questions about your new medicines or doses, call [facility] at . We will try to help you manage these issues. VERY IMPORTANT TO READ AND REVIEW" Blood Clots and Blood Thinning Medicine: * You are given Coumadin during the immediate post-operative period to lessen the risk of blood clots forming in your legs and/or lungs. Coumadin is usually given for six weeks after surgery. * The prescription is for 2 mg tablets. At discharge, you should understand your dose and take it all at the same time every day, preferably after dinner. * You need to get your blood checked 1 - 2 times per week for six weeks, or as directed. * If your dose needs to change, we will call you. Do not take your medication on the day of the blood test until we call you. * If you don't hear from us after your blood draws, keep taking the same dose. Pain: * The immediate post-operative period after hip surgery is often quite painful. * You are given a prescription for pain medicine. You should take it, as directed, when you need it, especially before physical therapy and before going to bed. Pain that interferes with sleep is very common and can last several months. * You will likely need pain medicine for the first two to four weeks. It will not stop all of the pain. The pain will lessen and as you feel better, you may change to milder pain medicine such as Tylenol. * The most common side effects of pain medicine are nausea and constipation, so don't take more than you need. Physical Therapy: Home Exercise: * You were shown a series of exercises in the hospital. Do these exercises three to four times each day including the exercises you were shown in physical therapy. Walking: * Get up and walk several times each day. For the first four weeks, try not to stand or walk for more than one hour at a time. If you do stand or walk for more than one hour, you will not hurt anything, but your leg will likely swell. * As you feel comfortable, you may change from the walker or crutches to a cane and then to independent walking. SELF CARE INSTRUCTIONS AFTER TOTAL HIP SURGERY A. Keep car riding to a minimum for at least one month after surgery. B. Your balance may be shaky for a while. Use crutches or a walker until directed by your doctor. C. Use hand rails when walking on stairs. D. Wear low heeled shoes with non-slip soles. E. Be sure that your floors are free of things that could trip you - throw rugs , electrical cords, small objects. Avoid wet and waxed floors, especially with crutches and canes. F. Try to walk several times a day with rest periods between. G. Continue with all the exercises taught to you in the hospital. Again, make walking a part of your daily routine. VERY IMPORTANT TO READ AND REVIEW A. Take Coumadin, or Lovenox (blood thinning medications) as directed by your doctor. If you are on Coumadin, have a pro-time (blood test) drawn according to your doctor's instructions. This will tell the doctor how well the Coumadin is thinning your blood. B. There are a few signs you need to watch for after you are home. If you notice any of the followin. Increased severe hip pain. Some pain is expected especially when you exercise. 2. Increased swelling in your leg or knee; pain or swelling of the calf muscle in either lower leg. 3. Any fluid drainage from the incision. 4. Shortness of breath or chest pain. TEDs/Elastic Stockings: * The white elastic stockings help limit swelling and prevent blood clots from forming in your legs. The more you wear them, the more they work. * Wear them for six weeks. Things to Watch For: * Drainage from the incision site that occurs more than one week after your surgery. * Severely increased leg pain or swelling. * Increased redness at the incision site. * Fever above 101 degrees Fahrenheit. * Unusual chest pain or shortness of breath. * Unusual pain or burning with urination. Current Hospital Diet Patient's current hospital diet: Regular Diet Discharge Diet Recommended Diet: Regular Diet Procedures Procedures Performed: Left Hip Trochanteric Nail Open Reduction Internal Fixation Pending Studies Studies pending at discharge: no Physician Orders On Transfer Dressing Changes: as needed for soiling Vital Signs: per facility routine POLST Discussion: Not Applicable Medical Emergencies . Who to Call and When: Medical Emergencies: If at any time you feel your situation is an emergency, please call 911 immediately. . Non-Emergent Contact Non-Emergency issues call your: Primary Care Provider, Surgeon Call Non-Emergent contact if: temperature is above 101, wound has increased drainage, wound has increased redness, wound has increased pain, you have any medication questions . . "Provider Documentation" section prepared by Juan C Ling PA-C. . Core Measure Problem Core Measures: None [place] Drug Monitoring Program Search Results: no issues identified
[2017-04-05] MEDS ORDERED: OXYC-57 PO (17:35)
[2017-04-05] MEDS: KETOROLAC TROMETHAMINE 15 MG/ML VIAL IV PRN (19:26)
[2017-04-05] MEDS: LOSARTAN POTASSIUM 50 MG TAB PO SCH (21:19)
[2017-04-05] MEDS: DOCUSATE SODIUM/SENNA 50/8.6MG TAB PO SCH (21:19)
[2017-04-06] MEDS: ACETAMINOPHEN IV 1,000 MG in EMPTY BAG 0 ML IV SCH (02:10)
[2017-04-06] MEDS: OXYCODONE HCL IR 5 MG TAB (IMMEDIATE RELEASE) PO PRN ×4 (05:14→21:03)
[2017-04-06 08:22] LABS: HEPATITIS A IGM TC 51813E NON-REACTIVE (NON-REACTIVE); HEPATITIS B CORE IGM TC51854R NON-REACTIVE (NON-REACTIVE)
[2017-04-06 08:25] VITALS: BP 103/63; PULSE 84; TEMP 36.5; O2SAT 94
[2017-04-06] MEDS: CYANOCOBALAMIN 500 MCG TAB (VIT B-12) PO SCH (09:18)
[2017-04-06] MEDS: HYDROmorphone INJ 0.5 MG/0.5 ML SYR IV PRN ×2 (10:21→21:51)
--- NOTE | 2017-04-06 10:54 | ORTHOPEDICS PROGRESS NOTE ---
DATE: 04/06/2017 SUBJECTIVE: Postop day #2 status post ORIF of 3-part displaced proximal left femur fracture, intertrochanteric variant. At this point in time, the patient is observed walking from the bathroom to the chair. She is weightbearing to tolerance on the left leg. She is stable with a walker. She has passed PT. She is able to be transferred to rehabilitation. Vital signs are stable. She is afebrile. Wound dressing clean, dry and intact. Neurovascular check is normal. No laboratory work pending today. All of her serology is negative or any type of liver, hepatitis, infectious etiology. Her last INR was 0.9. IMPRESSION AND PLAN: Suggest discharging on 4 mg of Coumadin daily, keep INR 1.8-2.2. Mobilize to tolerance. Follow up with me in 2 weeks for staple removal. Can discharge/transfer to [facility] today.
[2017-04-06] MEDS ORDERED: NURSING VERBAL MED ORDER ONE (11:45)
[2017-04-06] MEDS: KETOROLAC TROMETHAMINE 15 MG/ML VIAL IV PRN ×2 (11:55→23:49)
[2017-04-06 15:05] VITALS: BP 98/58; PULSE 80; TEMP 36.8; O2SAT 100
[2017-04-06] MEDS: WARFARIN SOD 4 MG TAB PO SCH (16:15)
--- NOTE | 2017-04-06 16:47 | Family Medicine Progress Note ---
Progress Note Date of Service Apr 06, 2017. Subjective Pt evaluation today including: conversation w/ patient Pain: controlled Voiding: no voiding problems No concerns no acute events Complains of muscle spasms Constitutional: No fever, No chills Eyes: No worsening of vision ENT: No hearing loss Respiratory: No cough, No sputum, No wheezing, No shortness of breath, No dyspnea on exertion Abdomen: No pain, No nausea, No vomiting, No diarrhea Musculoskeletal: + joint pain, + muscle pain Medications Medications (Trade) Dose Ordered Sig/Lashaun Route Start Time Stop Time Status Last Admin Dose Admin Warfarin Sodium (Coumadin Tab) 4 mg DAILY@16 PO 04/06/17 12:00 05/06/17 11:59 04/06/17 16:15 4 MG Objective Vital Signs Vital Signs Past 12 Hours Date Time Temp Pulse Resp B/P (MAP) Pulse Ox O2 Delivery O2 Flow Rate FiO2 04/06/17 15:05 36.8 80 16 98/58 (71) 100 Room Air 04/06/17 13:31 36.5 84 16 94 Room Air 04/06/17 08:25 36.5 84 16 103/63 (76) 94 Room Air 04/06/17 07:50 Room Air Physical Exam General Appearance: no apparent distress Eyes: PERRL, EOMI Neck: supple Respiratory/Chest: lungs clear, normal breath sounds, no respiratory distress, no accessory muscle use Cardiovascular: regular rate, rhythm Abdomen: normal bowel sounds, non tender, soft Extremities: no calf tenderness, + pedal edema (trace), + pertinent finding ( rom limited due to pain in left hip) Neurologic/Psychiatric: oriented x 3 Laboratory Results Last 24 Hours Test 04/06/17 12:00 Prothrombin Time 10.7 SECONDS Prothromb Time International Ratio 1.0 Assessment and Plan Patient is an 82 year old female that presented yesterday with a fall and found to have a left hip fracture Left Hip Trochanteric Nail Open Reduction Internal Fixation - POD #1 - Pelvic X-ray: Acute moderately displaced comminuted intertrochanteric fracture of the left femur with significant associated angulation. - Hip X-ray: Intertrochanteric fracture left hip. Mild superior migration left femoral shaft. - Ancef x 2 doses - Pain well-controlled at this time with IV Tylenol, and has Dilaudid IV for breakthrough pain - Patient tolerating diet - Patient moved to surgical floor Transaminitis - Pharmacological vs Genetic vs Infectious - History of cholecystectomy - LFTs trended down - Acute Hepatitis Panel --> Hep B negative - Complete Abdominal US --> No acute liver abnormalities Hypertension - Losartan Constipation - Continue home Senna GERD - Continue home Nexium History of Cardiomyopathy - ECHO: * There is mild asymmetric left ventricular hypertrophy. * Left ventricular systolic function is normal. * Diastolic dysfunction, Grade II, consistent with elevated left atrial pressure. * There are regional wall motion abnormalities as specified. * The left atrium is moderately dilated. * Aortic valve sclerosis moderate, without significant aortic valvular stenosis. * There is mild mitral regurgitation. - EKG: NSR and non-specific ST changes - Cleared for surgery - Continue home atenolol --> held this morning due to hypotension DVT Prophylaxis - SCDs - Coumadin 4 mg resumed Code Status - Full Resuscitation Dispo: Pending bed placement at [facility] Attending Resident Physician Supervision Note: I personally interviewed and examined the patient with resident Dr. Kovacs I agree with progress note and physical exam mentioned above, I also performed my own encounter and examination. I reviewed all pertinent labs and studies Reviewed current medications I discussed and formulated of the assessment and plan with resident as mentioned above. Please refer to the Summary and agree with the findings and care plan with some clarifications in below: 82 year old female admitted because of a fall and found to have a left hip fracture, she had left Hip Trochanteric Nail Open Reduction Internal Fixation - POD #2, Pain is fair controlled with Dilaudid IV for breakthrough pain, patient has tolerated diet, sitting in a chair with her about physical therapist , further input such as DVT prophylaxis, weightbearing, physical therapy, and discharge plan will be per orthopedic surgeon. New identified transaminitis, have been improved, will continue follow-up acute hepatitis panel, ultrasound was done, there was no acute abnormalities. We discontinued Tylenol which is the liver office, avoid using Tylenol, and avoid other liver offensive medicines, advised her to follow-up with his PCP for further evaluations, cardiology on the case input appreciated, hx of Cardiomyopathy, and have very frequent PVCs on monitoring, no complex arrhythmias, cardiology suggest to refer a Holter monitor as an outpatient. Pending for discharge to [facility] when bed available General Appearance: not in acute distress Eyes: normal Sclerae, extraocular muscle intact ENT: hearing grossly normal Neck: supple Respiratory/Chest: normal air entry bilateral ,no respiratory distress, no accessory muscle use Cardiovascular: regular rate, rhythm, no murmur Abdomen: non tender, soft, no masses Extremities: left lateral hip dressing because surgical incision, there was limited range of motion left hip, no edema Neurologic/Psychiatric: Awake alert oriented times place, cranial nerves II-12 appear to be intact Skin: normal color, warm/dry, no rash Continued [facility] stay due to: home environment unsafe for pt Discharge planning: rehab hospital
[2017-04-06] MEDS: DOCUSATE SODIUM/SENNA 50/8.6MG TAB PO SCH (20:57)
[2017-04-06] MEDS: LOSARTAN POTASSIUM 50 MG TAB PO SCH (20:58)
[2017-04-06 23:30] VITALS: BP 126/65; PULSE 86; TEMP 36.7; O2SAT 96
[2017-04-07 06:06] LABS: ALBUMIN 2.3 gm/dl (3.4-5.0); CALCIUM 8.2 mg/dl (8.5-10.1); CREATININE 0.58 mg/dl (0.60-1.20); POTASSIUM 4.1 mmol/L (3.5-5.1); TOTAL PROTEIN 5.3 gm/dl (6.4-8.2)
[2017-04-07] MEDS: CYANOCOBALAMIN 500 MCG TAB (VIT B-12) PO SCH (08:33)
[2017-04-07] MEDS: OXYCODONE HCL IR 5 MG TAB (IMMEDIATE RELEASE) PO PRN (08:33)
[2017-04-07 09:59] VITALS: BP 126/65; PULSE 86; TEMP 36.7; O2SAT 96
[2017-04-07] MEDS: KETOROLAC TROMETHAMINE 15 MG/ML VIAL IV PRN (10:54)
--- NOTE | 2017-04-07 11:40 | Discharge Instructions ---
Discharge Instructions Date of Service Apr 07, 2017. Admission Reason for Admission: Hip Fracture Discharge Discharge Diagnosis / Problem: Left Hip Fracture Discharge Goals Goal(s): Decrease discomfort, Improve function, Therapeutic intervention, Prevent Disease Progression Activity Recommendations Activity Level: Assistance Required Therapies: Physical Therapy, Occupational Therapy . Additional Information Patient informed of condition: Yes Advance Directives: Yes DNR: No Level of Care: Acute Rehab Communicable Disease: No Prognosis: Stable Juarez Catheter: No Instructions / Follow-Up Instructions / Follow-Up Mrs. Bradford was admitted after a fall that resulted in to Left trochanteric fracture. She underwent ORIF and is being transferred to [facility] for acute rehab. She will be on Coumadin 4 mg for DVT prophylaxis. Please check INR 1-2 times a week to maintain an INR of 1.8-2.2. This will be discontinued after 6 weeks. She did have transaminitis on admission but has resolved completely on discharge. Liver USG was normal Please see Discharge instructions from Orthopedics Current Hospital Diet Patient's current hospital diet: Regular Diet Discharge Diet Recommended Diet: Low Sodium Diet (2gm Na) Procedures Procedures Performed: Left Hip Trochanteric Nail Open Reduction Internal Fixation Pending Studies Studies pending at discharge: no Medical Emergencies . Who to Call and When: Medical Emergencies: If at any time you feel your situation is an emergency, please call 911 immediately. . Non-Emergent Contact Non-Emergency issues call your: Primary Care Provider, Surgeon Call Non-Emergent contact if: you have a fever, your pain is worsening, wound has increased drainage, wound has increased redness, wound has increased pain . . "Provider Documentation" section prepared by Sheela Garcia. . Core Measure Problem Core Measures: None
[2017-04-07] MEDS: WARFARIN SOD 4 MG TAB PO SCH (12:12)
--- NOTE | 2017-04-07 12:14 | Discharge Summary ---
Discharge Summary Date of Service Apr 07, 2017. Discharge Summary Admission Date: Apr 03, 2017 at 16:28 Discharge Date: Apr 07, 2017 Discharge Disposition: Acute care facility Principal Diagnosis: Left trochanteric fracture s/p ORIF Problems/Secondary Diagnoses: Transaminitis Hypertension Constipation GERD History of Cardiomyopathy Procedures: CHEST ONE VIEW PORTABLE CLINICAL HISTORY: 82 years-old Female presenting with fall. TECHNIQUE: Portable supine AP view of the chest was obtained. COMPARISON: 10/15/2014. FINDINGS: Atherosclerosis of the aortic arch. Cardiac silhouette normal in size. Surgical clips project over the left mid lung, unchanged. Mildly prominent lung markings. No focal opacity. No large effusion or pneumothorax. Degenerative changes of the thoracic spine. Left shoulder arthroplasty. Effacement of the right acromiohumeral interval suggests chronic rotator cuff tear. Upper abdomen normal. IMPRESSION: 1. Prominent pulmonary lung markings could relate to volume overload or supine positioning. No convincing evidence of acute cardiopulmonary disease. PELVIS 1 OR 2 VIEW ROUTINE CLINICAL HISTORY: Fall. COMPARISON STUDY: No previous studies for comparison. FINDINGS: Note is made of an acute moderately displaced comminuted intertrochanteric fracture of the left femur. Significant associated angulation is noted due to the fracture. No pelvic or proximal right femoral fracture is identified. The sacroiliac joints and symphysis pubis are intact. IMPRESSION: Acute moderately displaced comminuted intertrochanteric fracture of the left femur with significant associated angulation. L HIP UNILATERAL 2 VIEWS CLINICAL HISTORY: Left hip fracture trauma. Pain. COMPARISON: None. DISCUSSION: Intertrochanteric fracture left hip. No evidence for acetabular protrusion. Mild superior migration left femoral shaft. There is no evidence for soft tissue swelling. IMPRESSION: Intertrochanteric fracture left hip. Mild superior migration left femoral shaft. Abdomen US IMPRESSION: 1. Sonographically normal liver. 2. Post cholecystectomy with mild dilatation of the common bile duct likely reservoir effect in the post cholecystectomy state. 3. Bilateral parapelvic renal cysts versus pelvocaliectasis/hydronephrosis. If there is clinical concern for urinary obstruction, contrast-enhanced CT could be considered. Consultations: Orthopedics Cardiology Medication Reconciliation New Medications: Oxycodone/Acetaminophen 5MG/325MG (Percocet 5MG/325MG) Tab 1-2 TABLETS PO Q4H PRN for Pain, #30 TAB Warfarin Sodium (Coumadin) 2 Mg Tab 4 MG PO DAILY, #60 TAB Continued Medications: Atenolol (Tenormin) 25 Mg Tab 25 MG PO QPM, 0 Refills Cholecalciferol (Vitamin D3) 1,000 Unit Tab 2 TAB PO QAM for 90 Days, #180 TAB 3 Refills Esomeprazole Magnesium (Nexium) 40 Mg Capcr 40 MG PO DAILY PRN for PRN, CAP Losartan Potassium (Cozaar) 50 Mg Tab 50 MG PO QPM, TAB Multiple Minerals W/ Vitamins (Citracal Plus) 1 Tab Tab 1 TAB PO QAM [Vitamin B12] () 3000 MG PO QAM Discontinued Medications: Aspirin (Aspirin) 325 Mg Tab 2 TAB PO 4XWK "NOT CONSISTENT WITH TAKING" Discharge Exam Review of Systems: Constitutional: No fever, No chills, No sweats, No weight loss Eyes: No worsening of vision ENT: No hearing loss Respiratory: No cough, No sputum, No wheezing, No shortness of breath, No dyspnea on exertion, No dyspnea at rest Cardiovascular: No chest pain Abdomen: No pain, No nausea, No vomiting, No diarrhea, No constipation Musculoskeletal: + joint pain, + muscle pain, + swelling, No calf pain Genitourinary - Female: No dysuria, No urinary frequency, No urinary urgency Neurologic: + weakness, No paralysis, No numbness/tingling, No vertigo Physical Exam: General Appearance: no apparent distress Eyes: PERRL, EOMI ENT: hearing grossly normal Neck: supple, no JVD Respiratory/Chest: lungs clear, normal breath sounds, no respiratory distress, no accessory muscle use Cardiovascular: regular rate, rhythm, normal peripheral pulses Abdomen / GI: normal bowel sounds, non tender, soft Extremities: no calf tenderness, + pedal edema, + pertinent finding (left hip dressing clean dry intact) Neurologic/Psychiatric: alert, normal mood/affect, oriented x 3, + motor weakness Hospital Course This is a pleasant 82 y/o F who sustained a left intertrochanteric fracture after a fall while attempting to help an individual with his wheelchair. She is a volunteer at the hospital. Cardiology was consulted due to long standing history of cardiomyopathy, however this is mild and would not interfere with surgery. Orthopedics was consulted and performed ORIF. She started physical therapy and will be transferred to [facility] for acute rehab. On admission, she was noted to have transaminitis. This was evaluated and no cause was found. (liver US was normal, hep panel was negative) The transaminitis resolved prior to discharge. She will be on Coumadin 4 mg for DVT prophylaxis with goal INR of 1.8-2.2. She will be followed outpatient by Orthopedics. Attending Resident Physician Supervision Note: I personally interviewed and examined the patient with resident Dr. Kovacs I agree with progress note and physical exam mentioned above, I also performed my own encounter and examination. I reviewed all pertinent labs and studies Reviewed current medications I discussed and formulated of the assessment and plan with resident as mentioned above. Please refer to the Summary and agree with the findings and care plan with some clarifications in below: 82 year old female admitted because of a fall and found to have a left hip fracture, she had left Hip Trochanteric Nail Open Reduction Internal Fixation - POD #3, Pain is fair controlled tolerated diet, sitting in a chair, has been doing physical therapy, orthopedic surgeon recommend Coumadin for DVT prophylaxis per their protocol, others such as weightbearing, physical therapy will be per orthopedic surgeon. New identified transaminitis, have been improved and totally resolved, ultrasound was done, there was no acute abnormalities. discontinued Tylenol which is the liver offensive, avoid using Tylenol, and avoid other liver offensive medicines, advised her to follow-up with his PCP for further follow- up liver function further evaluation if needed, cardiology on the case the input appreciated, hx of Cardiomyopathy, and have very frequent PVCs on monitoring, no complex arrhythmias, cardiology suggest to refer a Holter monitor as an outpatient, patient is to follow up with Dr. Harp, patient is going to discharge her massage today. General Appearance: not in acute distress Eyes: normal Sclerae, extraocular muscle intact ENT: hearing grossly normal Neck: supple Respiratory/Chest: normal air entry bilateral ,no respiratory distress, no accessory muscle use Cardiovascular: regular rate, rhythm, no murmur Abdomen: non tender, soft, no masses Extremities: left lateral hip dressing because surgical incision, there was limited range of motion left hip, no edema Neurologic/Psychiatric: Awake alert oriented times place, cranial nerves II-12 appear to be intact Skin: normal color, warm/dry, no rash Total Time Spent: Greater than 30 minutes This includes examination of the patient, discharge planning, medication reconciliation, and communication with other providers. Discharge Instructions Please refer to the electronic Patient Visit Report (Discharge Instructions) for additional information. Follow-Up PCP within 1 week Orthopedics in 2 weeks. Additional Copies To Nolan Jacinto M.D.; Armando Harp M.D.
[2017-04-10] MEDS ORDERED: ERGOCALCIFEROL 50,000 INTER.UNIT CAP PO SCH (21:00)
== END 2017-04-07 13:14 | DRG 481 ==
LOC: EDBD 14:03 → C.EDA 14:04 → C.MED 16:28 → ENRESERV 17:13 → C.2E 04-04 12:27 → ENRESERV 04-05 09:54 → C.3E 04-05 10:47
PROVIDERS: ADMIT Internal Medicine; ATTEND Hospitalist
PROC: 0QS704Z Reposition Left Upper Femur with Internal Fixation Device, Open Approach (ICD-10-PCS; principal; 2017-04-04 07:15)
DX: M80.052A Age-related osteoporosis with current pathological fracture, left femur, initial encounter for fracture (principal); I42.9 Cardiomyopathy, unspecified; I11.0 Hypertensive heart disease with heart failure; I50.9 Heart failure, unspecified; E78.5 Hyperlipidemia, unspecified; I49.3 Ventricular premature depolarization; R74.0 Nonspecific elevation of levels of transaminase and lactic acid dehydrogenase [LDH]; K21.9 Gastro-esophageal reflux disease without esophagitis; Z79.82 Long term (current) use of aspirin; Z79.899 Other long term (current) drug therapy; Z86.12 Personal history of poliomyelitis; Z85.3 Personal history of malignant neoplasm of breast; Z91.041 Radiographic dye allergy status; W18.09XA Striking against other object with subsequent fall, initial encounter; Y99.2 Volunteer activity; Y92.238 Other place in hospital as the place of occurrence of the external cause

== ENCOUNTER → 2017-04-18 | Outpatient (CLI) | payer BC, OTHER ==
[~2017-04-18] MED LIST changes: -ASPI325T45 PO; +OXYC-57 PO; +WARF2TAB PO
--- NOTE | 2017-04-18 13:18 | DIAGNOSTIC IMAGING REPORT ---
L PELVIS UNILATERAL HIP 1 VIEW CLINICAL HISTORY: LEFT HIP PAIN postoperative evaluation COMPARISON: None. DISCUSSION: Patient is status post left hip nailing procedure.. There is no evidence for soft tissue swelling. Comminuted intertrochanteric fracture is again noted. Alignment is anatomic. IMPRESSION: Anatomic alignment status post left hip nailing procedure The above report was generated using voice recognition software. It may contain grammatical, syntax or spelling errors. Electronically signed by: Liborio Voss M.D. 04/18/2017 1:16 PM Dictated Date/Time: 04/18/2017 1:14 PM
== END | disposition home or self-care (01) ==
LOC: C.RDSM 12:50
PROVIDERS: ATTEND Physician Assistant
DX: M25.552 Pain in left hip (principal); Z98.890 Other specified postprocedural states; Z91.041 Radiographic dye allergy status; Z91.048 Other nonmedicinal substance allergy status

== ENCOUNTER → 2017-04-26 | Outpatient (CLI) | payer BC ==
[2017-04-26 15:33] LABS: INR 1.8 (0.9-1.1)
== END | disposition home or self-care (01) ==
LOC: C.LABSPEC 14:43
PROVIDERS: ATTEND Physical Medicine & Rehabilitation Sports Medicine
DX: Z79.01 Long term (current) use of anticoagulants (principal)

== ENCOUNTER → 2017-05-06 | Outpatient (CLI) | payer BC ==
--- NOTE | 2017-05-16 08:48 | CODING QUERY NO DIAGNOSIS ---
Valid Physician Order Needed A valid physician order must be submitted in order to properly bill for the service(s) provided, including date of service(s), valid diagnosis, and physician signature. If these tests are done on a recurring basis the original physican order must be submitted in order to code and bill for the service(s) provided. Please fax us the original, signed physician order so that we may expedite billing to [phone] DOS 05/06/17 * PT/INR Thank you [facility] Information Management
== END | disposition home or self-care (01) ==
LOC: C.LABSPEC 15:02
PROVIDERS: ATTEND Physical Medicine & Rehabilitation Sports Medicine
DX: Z01.89 Encounter for other specified special examinations (principal)

== ENCOUNTER → 2017-05-20 | Outpatient (CLI) | payer BC | END | disposition home or self-care (01) | LOC: C.RDSM 17:45 | PROVIDERS: ATTEND Physical Medicine & Rehabilitation Sports Medicine | DX: Z09 Encounter for follow-up examination after completed treatment for conditions other than malignant neoplasm (principal) ==

== ENCOUNTER 2023-06-19 05:25 | Observation (INO) ==
--- NOTE | 2023-05-28 10:51 | PAT Medication Instructions ---
Medication Instructions Date of Service May 28, 2023 Home Medications aspirin 325 mg tablet 325 mg PO DAILY PRN calcium carbonate (Calcium 600) 600 mg PO QAM cholecalciferol (vitamin D3) 25 mcg (1,000 unit) tablet 2,000 units PO QAM cyanocobalamin (vitamin B-12) 1,000 mcg tablet 3,000 mcg PO QAM levocetirizine 5 mg tablet 5 mg PO QAM losartan 25 mg tablet 25 mg PO QAM metoprolol succinate 25 mg tablet,extended release 24 hr 25 mg PO QAM ASK your prescriber and surgeon aspirin 325 mg tablet 325 mg PO DAILY PRN DO NOT take the morning of surgery calcium carbonate (Calcium 600) 600 mg PO QAM cholecalciferol (vitamin D3) 25 mcg (1,000 unit) tablet 2,000 units PO QAM cyanocobalamin (vitamin B-12) 1,000 mcg tablet 3,000 mcg PO QAM levocetirizine 5 mg tablet 5 mg PO QAM losartan 25 mg tablet 25 mg PO QAM Take morning of surgery With a small sip of water, OTHERWISE NOTHING TO EAT OR DRINK AFTER MIDNIGHT: metoprolol succinate 25 mg tablet,extended release 24 hr 25 mg PO QAM Other Notes If you have any questions please call us at [phone] or [phone] or or [phone]
--- NOTE | 2023-06-03 11:27 | Anesthesiology Consultation ---
Date of Service June 03, 2023 Assessment & Plan (1) Encounter for pre-operative examination: - will request most recent office note-PCP Dr. Jacinto 04/29/23. - upcoming [place] cardiology pre-operative appointment 06/12/23. - limb concerns: right leg, arms: right leg-partial paralysis from polio; right arm-partial paralysis from polio; lymphedema in left arm: patient plans to discuss IV placement/lab draw preference with staff DOS-denies preference at PAT visit. This was marked on OR sheet. - Outpatient joint assessment: Patient is currently scheduled for inpatient pathway. If re-evaluated and patient/surgeon requests outpatient pathway, patient is not recommended candidate for outpatient joint program from anesthesia standpoint. Chart Review Chart Review: Pending: Refer to Additional Notes / Consult section and Patient seen in Pre Admission Testing Teaching & Discussion Pre-Anesthesia Teaching/Discussion Notes: Instructed NPO after midnight before surgery, except medications with 15 cc of water. Medication instructions provided according to the PAT guidelines. History Surgery Operation Date: 06/19/23 09:15 Proposed Procedures p Right Total Knee Arthroplasty - Aurelio Carcamo MD Height/Weight Height: 5 ft 4 in Weight: 62 kg Allergies Allergy/AdvReac Type Severity Reaction Status Date / Time adhesive tape Allergy Unknown Unknown Verified 05/17/23 11:26 Iodinated Contrast Media Allergy Unknown Unknown Verified 05/17/23 11:26 [Iodinated Contrast- Oral and IV Dye] latex Allergy Unknown Unknown Verified 05/17/23 11:26 Medications Home Medications Medication Instructions Recorded Confirmed Last Taken aspirin 325 mg tablet 325 mg PO DAILY PRN Pain 07/03/19 05/17/23 07/03/19 calcium carbonate (Calcium 600) 600 mg PO QAM 07/03/19 05/17/23 Unknown cholecalciferol (vitamin D3) 25 2,000 units PO QAM 05/17/23 05/17/23 Unknown mcg (1,000 unit) tablet cyanocobalamin (vitamin B-12) 3,000 mcg PO QAM 05/17/23 05/17/23 Unknown 1,000 mcg tablet levocetirizine 5 mg tablet 5 mg PO QAM 05/17/23 05/17/23 Unknown losartan 25 mg tablet 25 mg PO QAM 05/17/23 05/17/23 Unknown metoprolol succinate 25 mg 25 mg PO QAM 05/17/23 05/17/23 Unknown tablet,extended release 24 hr Past Medical History Medical History (Updated 06/03/23 @ 14:02 by Libby Terrell PA-C) Allergic rhinitis Arthritis Esophageal reflux controlled, stable per pt History of acute poliomyelitis age 10, right leg partially paralyzed, shortened right heel History of breast cancer 1960s or 70s per patient, B/L s/p lumpectomy, chemo, and XRT Hx of cardiomyopathy Hx of congestive heart failure EF 50-55% on 11/2021 echo Hypertension controlled, stable per pt Left bundle branch block entered in EMR 2019 Limb alert care status right leg, arms: right arm-patient request due to polio effect; lymphedema in left arm: patient plans to discuss IV placement/lab draw preference with staff DOS-denies preference at PAT visit. Poor historian Patient denies h/o stroke, seizures, DM, blood clots/DVTs or blood transfusions. Exercise / Class Metabolic Activity II 4-5 Yardwork/Stairs/Walk up hill (denies chest discomfort or shortness of breath with 1 FOS) Past Family History Family History Father Hypertension FH: CVA (cerebrovascular accident) Mother Breast cancer Osteoporosis Past Surgical History Surgical History (Updated 06/03/23 @ 11:30 by Libby Terrell PA-C) History of cataract surgery History of section History of cholecystectomy History of hip surgery Lt, due to fall History of lumpectomy History of shoulder replacement left History of surgery on wrist right Hx of bilateral mastectomy Past Anesthesia History No Hx of Anesthesia Complications and No Family Hx of Anesthesia Complications History of PONV No Hx of PONV and No Hx of Motion Sickness Social History Smoking Status: Never smoker Do You Dip or Chew Tobacco: No Hx Alcohol Use: Yes Alcohol type: wine alcohol intake frequency: holidays/special occasions only Hx Substance Use: No substance use type: does not use Review of Systems Patient denies chest pain, shortness of breath, dyspnea on exertion, snoring, witnessed apneas, fever, chills, cough, wheezing, or palpitations. Physical Exam Vital Signs Vitals BP 102/65 P 69 TEMP 97.4 SP02 96% on RA RESP 18 Physical Patient resting comfortably in chair in no acute distress, alert and oriented, responding appropriately throughout visit Full cervical extension range of motion without pain TMD < 3 finger breadths Mallampati Score 2 Dentition: implant lower front; denies chipped or loose teeth, caps/crowns, or bridges Lungs: normal respiratory effort. Good air movement, clear throughout to auscultation, no adventitious breath sounds Cardiac: regular rate and rhythm, no murmurs noted Carotid arteries: negative bruit bilat Lab Results Anesthesia Preop Results Results Anesthesia Widget: WBC 5.88 K/ul (4.8-10.8) 06/03/23 Hgb 12.9 g/dl (12.0-16.0) 06/03/23 Hct 40.0 % (37.0-47.0) 06/03/23 Plt 250 K/uL (130-400) 06/03/23 Na 136 mmol/L (136-145) 06/03/23 K 4.6 mmol/L (3.5-5.1) 06/03/23 Cl 106 mmol/L (98-107) 06/03/23 CO2 24 mmol/L (21-32) 06/03/23 BUN 21 mg/dl (6-23) 06/03/23 Creat 0.80 mg/dl (0.6-1.2) 06/03/23 Glucose Level 86 mg/dl (70-99(Fasting)) 06/03/23 PT 10.2 Seconds (9.0-12.0) 06/03/23 PTT 30 Seconds (21-31) 06/03/23 INR 0.9 (0.9-1.1) 06/03/23 Urine Color Yellow 06/03/23 Urine Appearance Clear (Clear) 06/03/23 Urine pH 5.5 (4.5-7.5) 06/03/23 Urine Specific [place] 1.017 (1.000-1.030) 06/03/23 Urine Protein Negative (Negative) 06/03/23 Urine Glucose (UA) Negative (Negative) 06/03/23 Urine Ketones Negative (Negative) 06/03/23 Urine Blood Negative (Negative) 06/03/23 Urine Nitrite Negative (Negative) 06/03/23 Urine Bilirubin Negative (Negative) 06/03/23 Urine Urobilinogen Negative (Negative) 06/03/23 Urine Leukocyte Esterase Negative (Negative) 06/03/23 Blood Type B Positive 06/03/23 Antibody Screen NEGATIVE 06/03/23 Testing Electrocardiogram Date: 06/03/23 Sinus rhythm with occasional PVCs, rate 64 bpm LBBB Chest X-Ray Date: 06/03/23 No active disease in the chest. Echocardiogram Date: 12/11/21 EF 50-55% No LV regional wall motion abnormalities Mild aortic regurgitation Mild to moderate mitral regurgitation
[2023-06-19] MEDS: LR 500ML BOLUS, THEN 15ML/HR IV SCH (06:15)
[2023-06-19] MEDS ORDERED: ROPIVACAINE 0.5% 5 MG/ML 30 ML VIAL ONE (06:16)
[2023-06-19] MEDS ORDERED: BUPIVACAINE 0.5 % 5 MG/1 ML PF 10ML VIAL ONE (06:16)
[2023-06-19] MEDS ORDERED: MIDAZOLAM HCL 1 MG/ML 2ML VIAL ONE (06:34)
--- NOTE | 2023-06-19 06:34 | History & Physical Bridge Note ---
Date of Service June 19, 2023 History & Physical Bridge Note I have examined the patient, reviewed the History & Physical and in the interval since the performance of the History & Physical I have noted the following changes of clinical significance:consent and site verified. no changes noted
[2023-06-19] MEDS: TRANEXAMIC ACID 1,000 MG **IV Pre-op IV SCH (06:52)
[2023-06-19] MEDS ORDERED: fentaNYL citrate PF 100 MCG/2 ML VIAL ONE (07:20)
[2023-06-19] MEDS: ceFAZolin 2000MG 2,000 MG/15 ML SYR IV SCH ×2 (07:20→14:51)
[2023-06-19] MEDS ORDERED: DEXAMETHASONE SOD INJ 4 MG/ML VIAL ONE (07:21)
[2023-06-19] MEDS ORDERED: ONDANSETRON INJ 2 MG/ML 2 ML VIAL ONE (07:21)
[2023-06-19] MEDS ORDERED: SUGAMMADEX SODIUM 200 MG/2 ML VIAL IV ONE (07:21)
[2023-06-19] MEDS ORDERED: ROCURONIUM BROMIDE 10 MG/ML 5 ML VIAL IV ONE (07:21)
[2023-06-19] MEDS ORDERED: PROPOFOL IV EMULSION 10 MG/ML 20 ML VIAL IV ONE (07:21)
[2023-06-19] MEDS ORDERED: PHENYLEPHRINE HCL 10 MG/ML VIAL ONE (07:33)
[2023-06-19] MEDS ORDERED: PROMETHAZINE HCL 6.25 MG in SODIUM CHLORIDE 0.9% 50 ML IV PRN (07:35)
[2023-06-19] MEDS ORDERED: ATROPINE SULFATE 0.1 MG/ML 10ML SYR IV PRN (07:35)
[2023-06-19] MEDS ORDERED: ePHEDrine sulfate 50 MG/ML AMP IV PRN (07:35)
[2023-06-19] MEDS: ORTHO JOINT ANESTHETIC ONE (07:44)
[2023-06-19] MEDS: TRANEXAMIC ACID 1,000 MG **IV Intra-op IV SCH (08:18)
[2023-06-19] MEDS: ROPIVACAINE 0.5% HCL/PF 246 MG, Ketorolac (*for OR use only*) 30 MG, EPINEPHrine 30MG/3... INFIL SCH (08:27)
--- NOTE | 2023-06-19 08:43 | Post Operative Brief Note ---
Immediate Post Op Note v1 Date of Surgery June 19, 2023 Pre & Post Diagnosis Operation Date: 06/19/23 07:00 Pre-Op Diagnosis: Right Knee Degenerative Joint Disease history of polio Post-Op Diagnosis: Right Knee Degenerative Joint Disease history of polio I identified the patient and participated in the time-out.: Yes Procedure Operation Date: 06/19/23 07:00 Actual Procedures p Right Total Knee Arthroplasty(Right) - Aurelio Carcamo MD Surgeon Aurelio Carcamo MD Manufacturer'S Representative THANIA Ling med student Keke Estimated Blood Loss 50 Findings Consistent with Post-Op Diagnosis Severe lateral compartment disease valgus alignment chronic ACL insufficiency Fluids See anesthesia record Complications None
--- NOTE | 2023-06-19 08:46 | Operative Report ---
Post Operative Report Pre & Post Diagnosis Operation Date: 06/19/23 07:00 Pre-Op Diagnosis: Right Knee Degenerative Joint Disease Post-Op Diagnosis: Right Knee Degenerative Joint Disease I identified the patient and participated in the time-out.: Yes Procedure Operation Date: 06/19/23 07:00 Actual Procedures p Right Total Knee Arthroplasty(Right) - Aurelio Carcamo MD Surgeon Aurelio Carcamo MD Post Hole Digging Machine Operator THANIA Ling med student Keke Estimated Blood Loss 50 Findings Consistent with Post-Op Diagnosis Severe DJD valgus alignment Fluids See anesthesia report Specimens Bone pathology Drains None Complications None Indications Severe pain over decades failed conservative management Description of Procedure After the patient was appropriate notified site verified consent provide antibiotics confirmed to be given the right lower extremity was prepped and draped use routine fashion. Tourniquet was inflated to 275 mmHg after exsanguination with a with a rubber Esmarch bandage for 51 minutes. Midline exposure was utilized. There was significant valgus. Full-thickness flaps raised. Parapatellar arthrotomy performed synovectomy completed extensive disease noted on the lateral half of her knee. There is also full-thickness area in the medial femoral condyle articular cartilage. There was about a centimeter by a centimeter. Once the soft tissue resection and osteophytes were made the cruciates were resected tibia subluxated and the remaining meniscal remnants removed. Distal femur was then resected 9 mm to proximal tibia 4 mm of the high side the flexion and extension gaps were excellent. Femur was sized to a 4 and appropriate cutting block applied and the resection was made. Again the flexion gap was then noted to be excellent. The box cut was then made and the size 4 fit well. The tibia was broached and reamed to a size 4 with a 6 mm spacer everything was stable in full flexion full extension. The alignment was excellent. Patella was resected leaving 14 mm and a 35 button seated it tracked well after a limited lateral release. The area was then all injected with Ortho mix all trial elements removed your wound irrigated with Betadine and Pulsavac and permanent cemented in position tibia femur patella in that order a 12 minutes of tourniquet deflated no other dose TXA given there was no excessive bleeding. Once the cement was fully hardened the knee was flexed at 14 minutes the trial spacer removed no cement removal required wound irrigated 1 final time the permanent liner seated the knee reduced and closed at 40 degrees of flexion with #2 Vicryl 2-0 Vicryl and standstill clips. Appropriate dressing applied the patient transferred to cover in satisfactory addition having tolerated the procedure well. This was the rotating platform [facility] knee system. Summary of implants size 4 posterior cruciate substituting femur size 4 tibial tray with size 4 spacer posterior cruciate substituting 6 mm thick 35 patellar button 2 bags of [place] G cement. DVT prophylaxis per protocol to begin tomorrow. Patient has history of polio was requesting to go home case management to finalize home health services. I attest to the content of the Intraoperative Record and any orders documented therein. Any exceptions are noted below.
--- NOTE | 2023-06-19 08:49 | Orthopedic Progress Note ---
Date of Service June 19, 2023 Orthopedic Progress Note Patient tolerated right total knee replacement. At this point time has no major issues. Vital signs are stable afebrile. X-rays pending. Wound dressing clean dry and intact. Family and friends contacted.
--- NOTE | 2023-06-19 08:49 | Discharge Summary ---
Date of Service June 20, 2023 Admission HPI Per Admitting Provider Osteoarthritis severe valgus deformity right knee history of polio Principal Diagnosis Osteoarthritis severe valgus deformity right knee Discharge Data Allergies Allergy/AdvReac Type Severity Reaction Status Date / Time adhesive tape Allergy Unknown Unknown Verified 06/19/23 05:56 Iodinated Contrast Media Allergy Unknown Unknown Verified 06/19/23 05:56 [Iodinated Contrast- Oral and IV Dye] latex Allergy Unknown Unknown Verified 06/19/23 05:56 Vaccinations None Consultations None Procedures Performed Operation Date: 06/19/23 07:00 Actual Procedures p Right Total Knee Arthroplasty(Right) - Aurelio Carcamo MD Ordered Studies 06/19/23 05:00 US - OR guided needle placemen Routine Hospital Course (1) Status post right knee replacement: Plan Home health care. Total Time Total Time Spent Total Time Spent (In Minutes): 5 minutes. Discharge Plan Discharge Items Reason For Visit: Right Knee Degenerative Joint Disease Discharge Diagnosis: Same Condition on Discharge: Good Activity: Per Instructions section Lifting: Wait until after follow-up appointment Bathing: Keep incision dry Sexual Activity: Wait until after follow-up appointment Exercise/Sports: Wait until after follow-up appointment Call non-emergency contact if: your temperature is above 101.5, your wound has increased redness, your wound has increased drainage and your wound pain has increased Follow-up/Referrals: Nolan Jacinto [Primary Care Provider] - Deb Attending Provider Instructions: DIET: * Resume previous diet. MEDICATIONS: * Please take your prescriptions as instructed at your pre-op appointment and/or see medication discharge instructions listed above. * If concerns develop, call your physician's office at . SPECIAL CARE INSTRUCTIONS: * Ice/Elevate as instructed. * Keep dressing clean, dry, intact. * Your surgical extremity may be discolored due to prepping agents used on the skin. A bluish-green tint is a normal variant and should not cause alarm. Call your doctor at [phone] if: * Temperature above 101 degrees * Pain not relieved by pain medicine ordered * There is increased drainage or redness from any incision * You have any unanswered questions, problems or concerns. FOLLOW UP VISIT: * If not already scheduled, please call the office at to schedule a follow-up appointment. Pending Studies at Discharge: Yes (Bone pathology) Stand-Alone Forms: My [facility] Medications and DC Order Prescriptions: No Action calcium carbonate [Calcium 600] 600 mg calcium (1,500 mg) Tablet 600 mg PO QAM aspirin 325 mg Tablet 325 mg PO DAILY PRN (Reason: Pain) cyanocobalamin (vitamin B-12) 1,000 mcg tablet 3,000 mcg PO QAM losartan 25 mg tablet 25 mg PO QAM metoprolol succinate 25 mg tablet extended release 24 hr 25 mg PO QAM cholecalciferol (vitamin D3) 1,000 unit (25 mcg) tablet 2,000 units PO QAM levocetirizine 5 mg tablet 5 mg PO QAM Rx Instructions: TAKE 1 TABLET BY MOUTH ONCE DAILY Admission Data Admit Date/Time: 06/19/23 09:02 Attending Provider: Aurelio Carcamo Admit Provider: Aurelio Carcamo Primary Care Provider: Nolan Jacinto
--- NOTE | 2023-06-19 08:55 | Operative Report ---
Post Operative Report Pre & Post Diagnosis Operation Date: 06/19/23 07:00 Pre-Op Diagnosis: Right Knee Degenerative Joint Disease Post-Op Diagnosis: Right Knee Degenerative Joint Disease I identified the patient and participated in the time-out.: Yes Procedure Operation Date: 06/19/23 07:00 Actual Procedures p Right Total Knee Arthroplasty(Right) - Aurelio Carcamo MD Surgeon ARVIN Carcamo MD Sign Maker THANIA Ling PA-C med student Keke Estimated Blood Loss 50 Findings Consistent with Post-Op Diagnosis see operative report Specimens see operative report Drains none Complications none Disposition Accompanied Patient To Recovery: Yes Indications This 88 year old female presented to the office with complaints of persisting right knee pain. She had tried conservative care measures including activity modification and injection therapy, without improvement. She elected to proceed with surgical intervention after being educated about potential risks and outcomes. Preoperative imaging was obtained. Description of Procedure The patient was taken to the operating room where she was given general anesthesia. She was prepped and draped in the usual sterile fashion. Please see Dr. Carcamo's operative report for specifics of the procedure. I was present for the entire case from initial patient positioning through final wound closure. Assistance was provided in tissue retraction, hemostasis, trial implant placement, final implant placement, and final wound closure. The patient was taken to the recovery room in satisfactory condition. I attest to the content of the Intraoperative Record and any orders documented therein. Any exceptions are noted below.
--- NOTE | 2023-06-19 09:00 | Operative Report ---
Post Operative Report Pre & Post Diagnosis Operation Date: 06/19/23 07:00 Pre-Op Diagnosis: Right Knee Degenerative Joint Disease Post-Op Diagnosis: Right Knee Degenerative Joint Disease I identified the patient and participated in the time-out.: Yes Procedure Operation Date: 06/19/23 07:00 Actual Procedures p Right Total Knee Arthroplasty(Right) - Aurelio Carcamo MD Surgeon Aurelio Carcamo MD Air Traffic Control Equipment Repairer THANIA Ling PA-C med student Keke Estimated Blood Loss 50 Findings Consistent with Post-Op Diagnosis Same as postoperative diagnosis. Specimens The resected portions of the distal femur and the proximal tibia. Description of Procedure Please see detailed operative note. I attest to the content of the Intraoperative Record and any orders documented therein. Any exceptions are noted below.
--- NOTE | 2023-06-19 09:06 | Orthopedic Progress Note ---
Date of Service June 19, 2023 Orthopedic Progress Note Patient awake and alert in the recovery room denies chest pain shortness of breath fever chills nausea vomiting or headache. Vital signs are stable she is afebrile. Neurovascular check is baseline has intact femoral sciatic nerve function with some baseline changes secondary to polio. Postop x-rays AP and lateral look excellent. Wound dressing clean dry and intact. Assessment doing well continue care pathway.
[2023-06-19] MEDS: HYDROmorphone INJ 1 MG/ML SYRINGE IV PRN ×2 (09:10→09:32)
--- NOTE | 2023-06-19 09:12 | XRay Report ---
RIGHT KNEE 2 VIEWS History: Right total knee arthroplasty. Degenerative arthritis. Postop. FINDINGS: The patient is status post a right total knee arthroplasty. The hardware is intact. No frac ture or dislocation. Skin alfredo are in place. IMPRESSION: Right total knee arthroplasty. No evidence for hardware complication. ACT 112: Negative or not required by law. Electronically signed by: Alcides Perez M.D. 06/19/2023 9:11 AM
[2023-06-19] MEDS: ACETAMINOPHEN 1,000 MG/100 ML VIAL IV STA (09:36)
[2023-06-19] MEDS: KETOROLAC 30 MG/ML VIAL IV PRN (09:46)
[2023-06-19] MEDS: ACETAMINOPHEN 1000 MG/100 ML IV IV ONE (09:47)
[2023-06-19] MEDS: KETOROLAC 30 MG/ML VIAL ONE (09:57)
--- NOTE | 2023-06-19 10:20 | Anesthesiology Progress Note ---
Date of Service June 19, 2023 Anesthesia Post Procedure Vital Signs Vital Signs: Temp Pulse Resp BP Pulse Ox O2 Del Method O2 Flow Rate 06/19/23 10:15 67 16 120/57 L 100 Nasal Cannula 2 06/19/23 10:05 36.4 C L 66 18 106/59 L 99 Nasal Cannula 2 06/19/23 09:55 67 21 105/52 L 98 Nasal Cannula 2 06/19/23 09:45 61 22 114/51 L 100 Oxymask 4 06/19/23 09:35 69 20 104/76 95 Oxymask 4 06/19/23 09:25 73 18 100/67 100 Oxymask 4 06/19/23 09:15 70 18 103/48 L 98 Oxymask 4 06/19/23 09:10 72 20 103/77 96 Oxymask 4 06/19/23 09:00 70 20 112/59 L 99 Oxymask 4 06/19/23 08:52 36.2 C L 74 16 114/58 L 97 Oxymask 6 06/19/23 05:59 36.5 C 80 20 131/71 93 Room Air Pain Intensity Right Knee: Pain Intensity: 6 Transfer of Care Handoff Completed per policy Notes Mental Status: alert / awake / arousable and participated in evaluation Nausea / Vomiting: adequately controlled Pain: adequately controlled Airway Patency, RR, SpO2: stable & adequate BP & HR: stable & adequate Hydration State: stable & adequate Anesthetic Complications: no major complications apparent and Pt Satisfied with anesthetic care
[2023-06-19] MEDS ORDERED: MAGNESIUM HYDROXIDE SUSP 30 ML UDC PO PRN (10:31)
[2023-06-19] MEDS ORDERED: ALUMINUM/MAGNESIUM SUSP 30 ML UDC PO PRN (10:31)
[2023-06-19] MEDS ORDERED: METOCLOPRAMIDE HCL INJ 5 MG/ML 2 ML VIAL IV PRN (10:31)
[2023-06-19] MEDS ORDERED: HYDROmorphone INJ 0.5 MG/0.5 ML SYR IV PRN (10:31)
[2023-06-19] MEDS ORDERED: NALOXONE HCL 0.4 MG/1 ML VIAL/CARP IV PRN (10:31)
[2023-06-19] MEDS ORDERED: ONDANSETRON INJ 2 MG/ML 2 ML VIAL IV PRN (10:31)
[2023-06-19] MEDS ORDERED: diphenhydrAMINE 50 MG/ML VIAL IV PRN (10:31)
[2023-06-19] MEDS ORDERED: bisacodyL 10 MG SUPP PR PRN (10:31)
[2023-06-19] MEDS: SODIUM CHLORIDE 0.9% 1,000 ML IV SCH (10:40)
[2023-06-19] MEDS: LR 60ML/HR IV SCH (11:04)
[2023-06-19] MEDS: KETOROLAC TROMETHAMINE 15 MG/ML VIAL IV SCH (12:28)
[2023-06-19] MEDS: LOSARTAN POTASSIUM 25 MG TAB PO SCH (12:29)
[2023-06-19] MEDS: METOPROLOL SUCC 25MG EXT REL TAB PO SCH (12:29)
[2023-06-19] MEDS: DOCUSATE SODIUM 100 MG CAP PO SCH (12:29)
[2023-06-19] MEDS: MULTIVITAMIN TAB PO SCH (12:29)
[2023-06-19] MEDS: CHOLECALCIFEROL 25 MCG (1000 UNITS) TAB PO SCH (12:29)
[2023-06-19] MEDS: CETIRIZINE HCL 10 MG TABLET PO SCH (12:30)
[2023-06-19] MEDS: CYANOCOBALAMIN (B-12) 2,500 MCG TABLET PO SCH (12:30)
--- NOTE | 2023-06-19 14:14 | Orthopedic Progress Note ---
Date of Service June 19, 2023 Assessment & Plan Admission and Anticipated Discharge Date Admission Date: June 19, 2023 Orthopedic Progress Note Afternoon rounds doing very well just feels drowsy denies chest pain shortness of breath fever chills nausea vomiting headache. Vital signs are stable she is afebrile. Neurovascular check femoral sciatic nerve is at baseline. Can do a straight leg raise can do ankle pumps. Wound dressing clean dry and intact. Postop x-rays look excellent. Assessment continue care pathway. She will likely go back to the [facility]. DVT prophylaxis per protoc ol.
[2023-06-19] MEDS: ACETAMINOPHEN 500 MG TAB PO SCH (14:51)
[2023-06-19] MEDS: FERROUS GLUCONATE 324 MG TAB PO SCH (17:16)
[2023-06-19] MEDS: ASCORBIC ACID 500 MG TAB PO SCH (17:16)
[2023-06-19] MEDS: SENNA 8.6 MG TAB PO SCH (19:51)
--- OUTSIDE RECORDS SUMMARY | 2023-06-20 03:52 | External Medical Summary | Continuity of Care Document ---
Author Name Unknown Organization [address] [place] [id number] Care Team Providers Care Care Taker Name Role Phone Nolan Jacinto Primary Care Physician [phone] Encounter [facility] [id number] Date(s): 06/13/23 - 06/13/23 [facility] 0 [facility] 207 [facility] [address] [address] [place] [phone] Encounter Diagnosis CAD in [place] artery(Discharge Diagnosis) - 06/12/23 Dilated cardiomyopathy(Discharge Diagnosis) - 06/12/23 HTN - Hypertension(Discharge Diagnosis) - 06/12/23 Hyperlipidemia(Discharge Diagnosis) - 06/12/23 Hypertensive heart disease with heart failure(Discharge Diagnosis) - 06/12/23 Peripheral vascular disease(Discharge Diagnosis) - 06/12/23 Osteoporosis(Discharge Diagnosis) - 06/12/23 Body mass index [BMI] 23.0-23.9, adult(Discharge Diagnosis) - 06/13/23 Pre-op exam(Discharge Diagnosis) - 06/13/23 Discharge Disposition: Home or Self Care Attending Physician: MD Jacinto Michael P Referring Physician: MD Carlos Alberto, Aurelio Meléndez Allergies, Adverse Reactions, Alerts Substance Reaction Severity Status iodine topical unknown Active Grass Nasal congestion Active Pollen Nasal congestion Active IVP dye unknown Active Assessment and Plan Extracted from: Title:Office Visit Note Author:MD Ophelia, Tj Day Date:06/13/23 1.CAD in [place] STATUS:Chronic stable. Previous visit: DATA:Labs/Tests reviewed. See CAC below = 100 in FEB 2023 GOAL:Maintain/improve stability. LDL < 70 PLAN:Continue current monitoring.Cont Statin Crestor 10 mg. Needs LDL-- last LDL = 101. FLP- ordered with preop labs . 2.Dilated cardiomyopathy STATUS:Chronic stable. Previous visit: Cont FU with Dr Gipson. Last ECHO = was in 2021.Just saw Dr. Gipson ---no changes. Cardiomyopathy was caused RTX for Br CA. DATA:Labs/Tests reviewed. GOAL:Maintain/improve stability. PLAN:Continue current monitoring.NOREEN Gipson pr plan . 3.HTN - Hypertension STATUS:Chronic stable. Previous visit: she does not take home BP DATA:Labs/Tests reviewed. BP = CMP ordered and not done GOAL:Maintain/improve stability. PLAN:Continue current monitoring. . 4.Hyperlipidemia STATUS:Chronic stable. Previous visit: DATA:Labs/Tests reviewed. LIPIDS ordered and not done GOAL:Maintain/improve stability. PLAN:Continue current monitoring.Get LIPIDS now . 5.Hypertensive heart disease with heart failure STATUS:Chronic stable. Previous visit: Plan was to cont Losartan and metoprolol ( vs Atenolol--also listed). She will clarify which B Joya she is on. BP at home = Never checks at home. Today 128/76 DATA:Labs/Tests reviewed. GOAL:Maintain/improve stability. PLAN:Continue current monitoring.NOREEN Gipson MD . 6.Peripheral vascular disease STATUS:Chronic stable. Previous visit: asymptomatic. No claudication. Discussed alerts us if sx claudication with walking. She does have chronicLE pain due to polio, but this is a little worse.Discussed starting a statin and she would like to have a CAC done first. Start Crestor 10 mg daily---consider increases at FU prn. Statt ASA 81 mg daily with food DATA:Labs/Tests reviewed. FEB 2023: CORONARY CALCIUM SCORE was = 100 c/w mild - mod CAD Left Main = 0 LAD = 76 LCx = 22 RCA = 1 GOAL:Maintain/improve stability. PLAN:Continue current monitoring.Stop ASA pre op. . 7.Osteoporosis STATUS:Chronic stable. Previous visit: DATA:Labs/Tests reviewed. Last DEXA was 07/05/22 GOAL:Maintain/improve stability. PLAN:Continue current monitoring.Next Dexa = 2024 . 8.Pre-op exam She is to have TKR on Sat of next week. PRE-OPERATIVE EVALUTION Requested by: Planned surgery: [_]High risk(aortic, peripheral vascular, cardiac, major transplant, lung resection) [ x]Intermediate risk(intraperitoneal, intrathoracic, CEA, head/ neck, ortho, urologic, prostate) [ ]Low risk(endoscopic w/ BX, superficial, EGD, cataracts, breast, ambulatory, BTL, D&C, ambreen, T&A, lysis of adhesions, hernia, TEVIN, rhinoplasty ) Exercise tolerance: < 3 METS [Light exercise]:easy walking, housework, golf, slow dancing, playing catch [But she is post polio also] 3-6 METS [Moderate]:fast walk; stationery bike; fast dance; rake leaves; garden; push mowing 7-9 METS [Vigorous]:hiking hills; jogging; basketball; walking up stairs; tennis; jumping jacks >10 METs [Very vigorous exercise]:biking fast; running race, racquetball, skip rope fast, competitive soccer; swimming laps fast Bleeding tendency:Denies h/o bleeding disorders or blood clots. She did stop the Baby ASA several mos ago Substance use:None Prior anesthesia:No history of anesthesia complications with prior surgeries Revised Cardiac Risk Index: Score=0 or 1 [0] Higher Risk Surgery (intraperitoneal, intrathoracic, supra-inguinal vascular) [0] Ischemic Heart Disease [0] History of CHF [0] History of cerebrovascular disease [0] Insulin therapy for DM [0] Pre-op Cr >2 [last Cr - o.86] Total Score=0 *The scores are assigned to four risk classes, as follows: RCRI scoreRisk classRisk percentage 0Class I 0.4% 1Class II 0.9% 2 Class III 6.6% 3 6 Class IV 11% MEDICALLY CLEARED FOR TKA RIGHT KNEE . Summary: Medications: reviewed/changed/refilled _ Completed Results:_Reviewed Labs:_Now: LIPIDS, CMP, CBC, PT/PTT Follow up visit: Return to clinic: _6 months Other activities completed this visit: Education provided (discussion, questions, etc) _ Discussed: _ Getting labs as ordered Coordinate care: Primary care and _ Time spent: Pre-visit planning: _ 11 Zvin-ny-maiq visit: _ 32 Total visit time: _ 43 *does not include time for AWV or procedure if applicable Immunizations Given and Recorded Vaccine Date Status Refusal Reason SARS-CoV-2 (COVID-19) mRNA BNT-162b2 vax 1 01/04/21 Recorded SARS-CoV-2 (COVID-19) mRNA BNT-162b2 vax 2 04/11/20 Recorded SARS-CoV-2 (COVID-19) mRNA BNT-162b2 vax 3 03/21/20 Recorded zoster vaccine, inactivated 4 10/06/20 Recorded zoster vaccine, inactivated 5 06/18/20 Recorded influenza virus vaccine, inactivated 11/19/15 Ata rded influenza virus vaccine, inactivated 11/18/14 Ata rded influenza virus vaccine, inactivated 11/18/13 Ata rded influenza virus vaccine, inactivated 12/19/12 Ata rded pneumococcal 13-valent vaccine 02/23/14 Given tetanus/diphtheria/pertuss, acel (Tdap) 08/28/12 G iven pneumococcal 23-valent vaccine 07/10/10 Recorded zoster vaccine live 02/18/10 Recorded 1Result Comment: 2021-05-09: Historical information-source unspecified 2Result Comment: 2020-06-27: Historical information-source unspecified 3Result Comment: 2020-06-27: Historical information-source unspecified 4Result Comment: 2021-05-09: Historical information-source unspecified 5Result Comment: 2020-06-27: Historical information-source unspecified Medications Cozaar 25 mg oral tablet Start: 04/30/17 13:43:00, 1 tab, PO, Daily, Disp# 90 tab, Refills: 2, Pharmacy: [facility] Start Date: 04/30/17 Status: Ordered levocetirizine 5 mg oral tablet TAKE 1 TAB BY MOUTH DAILY Start Date: 05/09/21 Status: Ordered Metoprolol Succinate ER 25 mg oral tablet, extended release TAKE 1 TABLET BY MOUTH ONCE DAILY Start Date: 04/20/21 Status: Ordered multivitamin Start: 03/27/11 9:25:00, 1 tab, PO, tab, on saturday Start Date: 03/27/11 Status: Ordered Os-Ari Calcium+D3 500 mg-200 intl units (5 mcg) oral tablet Start: 02/12/22 14:00:00 EST, See Instructions, daily Start Date: 02/12/22 Status: Ordered Prolia 60 mg/mL subcutaneous solution Start: 02/12/22 14:18:00 EST, See Instructions, Disp# 1 each, Refills: 1, 60 mg subQ Q 6 mos, Pharmacy: [facility] Start Date: 02/12/22 Status: Ordered rosuvastatin 10 mg oral tablet Start: 03/11/23 17:44:00 EST, 1 tab, PO, Daily, Disp# 90 tab, Refills: 4, Pharmacy: [facility] Start Date: 03/11/23 Stop Date: 06/03/24 Status: Ordered Vitamin B12 Start: 10/21/13 9:03:00, 1,000 mcg =, PO, Daily Start Date: 10/21/13 Status: Ordered Vitamin D3 Start: 10/21/13 9:03:00, 2,000 Int_Unit =, PO, Daily Start Date: 10/21/13 Status: Ordered Mental Status 06/13/23 Barriers to Learning one year Hearing de ficit, Vision impairment Mandatory Health Literacy Documentation Yes Health Literacy Communication Barriers N ever Primary Language Ghanaian Problem List Condition Confirmation Course Effective Dates Status H ealth Status Informant Allergic Rhinitis Confirmed Active Basal cell carcinoma of skin Confirmed Active Epistaxis Confirmed Active 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 Confirmed Active Changing skin lesion Confirmed Active Common migraine Confirmed Active CAD in [place] Confirmed Active Dilated cardiomyopathy Confirmed Active Muscle spasms of both lower extremities Confirmed Active Esophageal spasm Confirmed Active Fatigue Confirmed Active History of fractured pelvis Confirmed Active Hammer toe Confirmed Active History of basal cell carcinoma of skin Confirmed Active HTN - Hypertension Confirmed Active Hyperlipidemia 1 Confirmed Active Hypertensive heart disease with heart failure 2 Confirmed Active Fracture of left wrist Confirmed Active Osteoarthritis of knee Confirmed Active Sciatic leg pain. Confirmed Active Lymphedema Confirmed Active Abnormal mammogram Confirmed Active Melanocytic nevus of trunk Confirmed Active Actinic keratoses Confirmed Active Osteoarthritis of right knee Confirmed Active Osteoporosis Confirmed Active OAB (overactive bladder) Confirmed Active Fracture of left hip due to osteoporosis Confirmed Active Pre-op exam Confirmed Active Peripheral vascular disease Confirmed Active Personal history of primary malignant neoplasm of breast Confirmed Active Polio virus Confirmed Active Colon polyp, hyperplastic Confirmed 02/18/89 Active Post-polio syndrome Confirmed Active Degenerative joint disease of knee Confirmed Active Rotator cuff 3 Confirmed Active Seborrheic keratoses Confirmed Active Senile hyperkeratosis Confirmed Active Muscle spasm Confirmed Active Knee osteoarthritis Confirmed Active 1patient states she does not have high cholesterol 2[facility]- [facility] 07/26/2020 3Right shoulder Diagnosis Diagnosis Type Effective Dates Health Status Clinical Service Informant Hypertensive heart disease with heart failure Discharge Diagnosis 06/12/23 Osteoporosis Discharge Diagnosis 06/12/23 Hyperlipidemia Discharge Diagnosis 06/12/23 Peripheral vascular disease Discharge Diagnosis 06/12/23 Dilated cardiomyopathy Discharge Diagnosis 06/12/23 CAD in [place] Discharge Diagnosis 06/12/23 HTN - Hypertension Discharge Diagnosis 06/12/23 Body mass index [BMI] 23.0-23.9, adult Discharge Diagnosis 06/13/23 Non-Specified Pre-op exam Discharge Diagnosis 06/13/23 Procedures Procedure Date Related Diagnosis Body Site Status Mohs micrographic surgery 05/09/21 Completed Electrodesiccation with curettage 04/20/21 Completed Shave biopsy and cauterization of skin 04/13/21 Completed DEXA Bone Densitometry 1 07/04/20 Completed Mastectomy 2 12/20/19 Completed Pathological fracture of left hip 3 02/18/17 Completed Extracapsular cataract remov al with insertion of intraocular lens prosthesis (1 stage procedure), manual or mechanical technique (eg, irrigation and aspiration or phacoemulsification) 4 11/02/15 Completed Extracapsular cataract remov al with insertion of intraocular lens prosthesis (1 stage procedure), manual or mechanical technique (eg, irrigation and aspiration or phacoemulsification) 5 09/14/15 Completed Colonoscopy normal 02/19/08 Comple jahaira Left shoulder 2002 Completed Lumpectomy 6 02/18/90 Completed Arthroscopy of knee 1989 Compl eted Surgery - 2nd toe 7, 8 02/18/85 Co mpleted Cholecystectomy 01/24/72 Completed 1Assesment: The BDM measured at AP Spine L1-L2 is 0.878g/cm with T-Score of -2.4. This patient is considered osteopenic according to WHO criteria. Bone Density is between 10 & 25% bellow young normal. Fracture risk is moderate. Treatment is advised. The BMD measured at femur neck is 0.602 g/cm with a T-Score of -3.1. This patient is considered osteoporotic according to WHO criteria. Fracture leslye is high. Golf Range Attendant treatment if not already prescribed, should be started. A follow up bone density test is recommended in one year to monitor response to therapy. The BMD measured at Femur Total is 0.653 g/cm with a T-Score of -2.8. This patient is considered osteoporptic according to the WHO criteria. Fracture righ is high. Pharmacological treatment if not already prescribed, should be started. A follow up bone density test is recommended in one year to monitor response to therapy. With a Z-Score of -0.8, this patient's BMD is considered within normal limits relative to their age. Even so they may be considered osteopenic or osteoporotic. which is normal at this age. 2BIL due to breast CA LEft side 3Surgical repair wiithout Hip Replacement 4left eye - Dr. Valdez 5right eye 6Left breast 72nd toe 8Per pt this was in 1985 (roughly)--not 2013 Vital Signs Most recent to oldest [Reference Range]: 1 Height 163.5 cm (06/13/23 11:48 AM) Patient Weight 62.5 kg (06/13/23 11:48 AM) Body Mass Index 23.38 kg/m2 (06/13/23 11:48 AM) Heart Rate 72 bpm (06/13/23 11:48 AM) Respiratory Rate 16 br/min (06/13/23 11:48 AM) Blood Pressure 114/56mmHg (06/13/23 11:48 AM) Cuff Pulse Pressure 58 mmHg (06/13/23 11:48 AM) Social History Social History Type Response Smoking Status Never smoked cigaret alek Sex Female FCM Outpt Note * MD Ophelia, Nolan P: PERFORM Event Display: FCM Outpt Note Authored Date: [id number] Chief Complaint pre-op clearance. History of Present Illness Most recent visitwith Dr. Jacinto: * This patient is followed longitudinally for chronic serious medical problems by Dr. An Jacinto. CC: FU on established problems (status = chronic): HLD, HTN, Cardiomyopathy, PVD, Osteoporosis Address new problems (status = acute): Review of Systems Constitutional: No fever, No chills, No fatigue. Respiratory: No shortness of breath, No cough, No wheezing. Cardiovascular: No chest pain, No palpitations. Gastrointestinal: No nausea, No vomiting, No diarrhea, No abdominal pain. Neurologic:No numbness, No tingling, No headache. Physical Exam Vitals & Measurements HR:72(Monitored) RR:16 BP:114/56 SpO2:97% HT:163.5cm WT:62.500kg(Dosing) WT:62.5kg BMI:23.38 PHQ2 Data(Data Documented on:06/13/2023 11:47) Emotional health assessment NEGATIVE General: Alert and oriented, No acute distress. Neck: Supple, Non-tender, No jugular venous distention, No lymphadenopathy, No thyromegaly. Respiratory: Lungs are clear to auscultation, Respirations are non-labored, Breath sounds are equal. Cardiovascular: Normal rate, Regular rhythm, No murmur, rubs or gallops. Gastrointestinal: Soft, Non-tender, Non-distended, Normal bowel sounds. Neurologic: Alert, Oriented, No focal deficits. Psychiatric: Cooperative, Appropriate mood & affect. Assessment/Plan 1.CAD in [place] STATUS:Chronic stable. Previous visit: DATA:Labs/Tests reviewed. See CAC below = 100 in FEB 2023 GOAL:Maintain/improve stability. LDL < 70 PLAN:Continue current monitoring.Cont Statin Crestor 10 mg. Needs LDL-- last LDL = 101. FLP- ordered with preop labs . 2.Dilated cardiomyopathy STATUS:Chronic stable. Previous visit: Cont FU with Dr Gipson. Last ECHO = was in 2021.Just saw Dr. Gipson ---no changes. Cardiomyopathy was caused RTX for Br CA. DATA:Labs/Tests reviewed. GOAL:Maintain/improve stability. PLAN:Continue current monitoring.NOREEN Gipson pr plan . 3.HTN - Hypertension STATUS:Chronic stable. Previous visit: she does not take home BP DATA:Labs/Tests reviewed. BP = CMP ordered and not done GOAL:Maintain/improve stability. PLAN:Continue current monitoring. . 4.Hyperlipidemia STATUS:Chronic stable. Previous visit: DATA:Labs/Tests reviewed. LIPIDS ordered and not done GOAL:Maintain/improve stability. PLAN:Continue current monitoring.Get LIPIDS now . 5.Hypertensive heart disease with heart failure STATUS:Chronic stable. Previous visit: Plan was to cont Losartan and metoprolol ( vs Atenolol--also listed). She will clarify which B Joya she is on. BP at home = Never checks at home. Today 128/76 DATA:Labs/Tests reviewed. GOAL:Maintain/improve stability. PLAN:Continue current monitoring.NOREEN Gipson MD . 6.Peripheral vascular disease STATUS:Chronic stable. Previous visit: asymptomatic. No claudication. Discussed alerts us if sxclaudication with walking. She does have chronicLE pain due to polio, but this is a little worse.Discussed starting a statin and she would like to have a CAC done first. Start Crestor 10 mg daily---consider increases at FU prn. Statt ASA 81 mg daily with food DATA:Labs/Tests reviewed. FEB 2023: CORONARY CALCIUM SCORE was = 100 c/w mild - mod CAD Left Main = 0 LAD = 76 LCx = 22 RCA = 1 GOAL:Maintain/improve stability. PLAN:Continue current monitoring.Stop ASA pre op. . 7.Osteoporosis STATUS:Chronic stable. Previous visit: DATA:Labs/Tests reviewed. Last DEXA was 07/05/22 GOAL:Maintain/improve stability. PLAN:Continue current monitoring.Next Dexa = 2024 . 8.Pre-op exam She is to have TKR on Sat of next week. PRE-OPERATIVE EVALUTION Requested by: Planned surgery: [_]High risk(aortic, peripheral vascular, cardiac, major transplant, lung resection) [ x]Intermediate risk(intraperitoneal, intrathoracic, CEA, head/ neck, ortho, urologic, prostate) [ ]Low risk(endoscopic w/ BX, superficial, EGD, cataracts, breast, ambulatory, BTL, D&C, ambreen, T&A, lysis of adhesions, hernia, TEVIN, rhinoplasty ) Exercise tolerance: < 3 METS [Light exercise]:easy walking, housework, golf, slow dancing, playing catch [But she is post polio also] 3-6 METS [Moderate]:fast walk; stationery bike; fast dance; rake leaves; garden; push mowing 7-9 METS [Vigorous]:hiking hills; jogging; basketball; walking up stairs; tennis; jumping jacks >10 METs [Very vigorous exercise]:biking fast; running race, racquetball, skip rope fast, competitive soccer; swimming laps fast Bleeding tendency:Denies h/o bleeding disorders or blood clots. She did stop the Baby ASA several mos ago Substance use:None Prior anesthesia:No history of anesthesia complications with prior surgeries Revised Cardiac Risk Index: Score=0 or 1 [0] Higher Risk Surgery (intraperitoneal, intrathoracic, supra-inguinal vascular) [0] Ischemic Heart Disease [0] History of CHF [0] History of cerebrovascular disease [0] Insulin therapy for DM [0] Pre-op Cr >2 [last Cr - o.86] Total Score=0 *The scores are assigned to four risk classes, as follows: RCRI scoreRisk classRisk percentage 0Class I 0.4% 1Class II 0.9% 2 Class III 6.6% 36 Class IV 11% MEDICALLY CLEARED FOR TKA RIGHT KNEE . Summary: Medications: reviewed/changed/refilled _Completed Results:_Reviewed Labs:_Now: LIPIDS, CMP, CBC, PT/PTT Follow up visit: Return to clinic: _6 months Other activities completed this visit: Education provided (discussion, questions, etc) _ Discussed: _ Getting labs as ordered Coordinate care: Primary care and _ Time spent: Pre-visit planning: _ 11 [id number]-[id number] visit: _ 32 Total visit time: _ 43 *does not include time for AWV or procedure if applicable Problem List/Past Medical History Ongoing Abnormal mammogram Actinic keratoses Allergic Rhinitis Basal cell carcinoma of skin Breast cancer| Status: Inactive Breast lumpectomy| Status: Inactive CAD in [place] artery Changing skin lesion Closed intertrochanteric fracture of left hip| Status: Inactive Colon polyp, hyperplastic Common migraine Degenerative joint disease of knee Dilated cardiomyopathy Epistaxis Esophageal spasm Fatigue Fracture of left hip due to osteoporosis Fracture of left wrist Hammer toe History of basal cell carcinoma of skin History of fractured pelvis HTN - Hypertension Hyperlipidemia Hypertensive heart disease with heart failure Knee osteoarthritis Lymphedema Melanocytic nevus of trunk Muscle spasm Muscle spasms of both lower extremities OAB (overactive bladder) Osteoarthritis of knee Osteoarthritis of right knee Osteoporosis Peripheral vascular disease Personal history of primary malignant neoplasm of breast Polio virus Post-polio syndrome Pre-op exam Rotator cuff Sciatic leg pain. 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 Historical Basal cell carcinoma of chest Chronic diarrhea Health care maintenance Pelvic fracture Sacroiliitis Solitary sacroiliitis (disorder) Procedure/Surgical History Mohs micrographic surgery| Service Date: 05/09/2021Electrodesiccation with curettage| ServiceDate: 04/20/2021have biopsy and cauterization of skin| Service Date: 2DEXA Bone Densitometry| Service Date: 07/04/2020Mastectomy| Service Date: 12/20/2019Pathological fracture of left hip| Service Date: 02/18/2017Extracapsular cataract removal with insertion of intraocular lens prosthesis (1 stage procedure), manual or mechanical technique (eg, irrigation and aspiration or phacoemulsification)| Service Date: 11/02/2015Extracapsular cataract removal with insertion of i ntraocular lens prosthesis (1 stage procedure), manual or mechanical technique (eg, irrigation and aspiration or phacoemulsification)| Service Date: 09/14/2015Colonoscopy normal| Service Date: 02/19/2008Left shoulder| Service Date: 2002Lumpectomy| Service Date: 02/18/1990Arthroscopy of knee| Service Date: 1990Surgery - 2nd toe| Service Date: 02/18/1985Cholecystectomy| Service Date: 01/24/1972 Medications calcium-vitamin D(Os-Ari Calcium+D3 500 mg-200 intl units (5 mcg) oral tablet), See Instructions cholecalciferol(Vitamin D3), 2000 Int_Unit, PO, Daily cyanocobalamin(Vitamin B12), 1000 mcg, PO, Daily denosumab(Prolia 60 mg/mL subcutaneous solution), See Instructions, 1 refills denosumab(Prolia), 60 mg= 1 mL, subQ, ONCE denosumab(Prolia), 60 mg= 1 mL, subQ, ONCE levocetirizine(levocetirizine 5 mg oral tablet) losartan(Cozaar 25 mg oral tablet), 25 mg= 1 tab, PO, Daily, 2 refills metoprolol(Metoprolol Succinate ER 25 mg oral tablet, extended release) multivitamin, 1 tab, PO, Daily rosuvastatin(rosuvastatin 10 mg oral tablet), 10 mg= 1 tab, PO, Daily, 4 refills Allergies GrassNasal congestion IVP dyeunknown PollenNasal congestion iodine topicalunknown Social History Smoking Status Never smoked cigarettes Alcohol Use:Current Type:Wine Frequency:1-2 times per month Average drinks per episode in last year:1 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 Breast cancer: Mother. CVA: Father. High Blood Pressure: Father. Osteoporosis: Mother. Health Status Family Member(s) Family Member(s) Relationship: Mother, Name: , Age: Unknown Relationship: Father, Name: , Age: Unknown Relationship: Sister, Name: age 2, Age: Unknown, Cause: meningitis Relationship: Brother, Name: , Age: Unknown, Cause: pulmonary fibrosis Immunizations Vaccine Date Status SARS-CoV-2 (COVID-19) mRNA BNT-162b2 vax 01/04/2021 Recorded Comments : 2021-05-09: Historical information-source unspecified zoster vaccine, inactivated 10/06/2020 Recorded Comments : 2021-05-09: Historical information-source unspecified zoster vaccine, inactivated 06/18/2020 Recorded Comments : 2020-06-27: Historical information-source unspecified SARS-CoV-2 (COVID-19) mRNA BNT-162b2 vax 04/11/2020 Recorded Comments : 2020-06-27: Historical information-source unspecified SARS-CoV-2 (COVID-19) mRNA BNT-162b2 vax 03/21/2020 Recorded Comments : 2020-06-27: Historical information-source unspecified influenza virus vaccine, inactivated 11/19/2015 Recorded influenza virus vaccine, inactivated 11/18/2014 Recorded pneumococcal 13-valent vaccine 02/23/2014 Given influenza virus vaccine, inactivated 11/18/2013 Recorded influenza virus vaccine, inactivated 12/19/2012 Recorded tetanus/diphtheria/pertuss, acel (Tdap) 08/28/2012 Given pneumococcal 23-valent vaccine 07/10/2010 Recorded zoster vaccine live 02/18/2010 Recorded Recommendations Health Maintenance Pending(in the next year) OverDue Medicare Annual Wellness Visit due05/30/21and every 1year Adult Influenza Vaccine due08/17/22and every 1year Due Adult COVID-19 Vaccination due06/13/23Unknown Frequency Adult Social Determinants of Health Screening due06/13/23Unknown Frequency Adult Tdap/Td Vaccine due06/13/23Unknown Frequency Satisfied(in the past 1 year) Satisfied Body Mass Index on06/13/23.Satisfied by GORGE Greer Alexandra Lipid Screening on10/26/22.Satisfied by [employer]system, [email or web address] Electronic Signature on File Electronically Reviewed/Signed by: Nolan Jacinto MD Author Signature Dt/Tm:06/13/2023 12:41 PM Department of Family Medicine [facility] Patient Care team information Care Team Personnel Name: MD Ophelia, Nolan Day Position: Physician - Family Med Member Role: Primary Care Provider Address: Address: [address] [place] [id number] [place] Care Team Related Persons Name: MORELIA ALICEA Address: home No Address Provided Name: RUBEN KIDD Address: home [address] [place] [id number] Name: RONEY KIDD Address: home [address] [place] [phone] Name: DAISY LAMA Address: [address] [place] [phone] Name: DAISY LAMA Address: home [address] [place] [address] [phone]"
[2023-06-20 06:23] LABS: Hematocrit (blood only) 29.9 % (37.0-47.0); Hemoglobin 9.9 g/dl (12.0-16.0); Mean Corpuscular Hemoglobin 30.7 pg (25.0-34.0); Mean Corpuscular Hgb Conc 33.1 g/dL (32.0-36.0); Mean Corpuscular Volume 92.6 fL (80.0-100.0); Mean Platelet Volume 10.4 fL (9.4-12.4); Platelet Count 187 K/uL (130-400); RDW Coefficient of Variation 13.2 % (11.5-14.5); RDW Standard Deviation 44.5 fL (36.4-46.3); Red Blood Count 3.23 M/uL (4.20-5.40); White Blood Count 10.49 K/ul (4.8-10.8)
[2023-06-20] MEDS: oxyCODONE HCL IR 5 MG TAB (IMMEDIATE RELEASE) PO PRN (06:46)
[2023-06-20] MEDS: SODIUM CHLORIDE 0.9% 250 ML IV ONE (07:33)
--- NOTE | 2023-06-20 07:37 | Orthopedic Progress Note ---
Date of Service June 20, 2023 Assessment & Plan Admission and Anticipated Discharge Date Admission Date: June 19, 2023 Orthopedic Progress Note Postop day #1 status post right total knee replacement. Patient awake and alert denies chest pain shortness of breath fever chills nausea vomiting headache. Running a little hypotensive particularly after the pain medication. Vital signs are stable. She has been up and walking around. Wound dressing clean dry and intact. Neurovascular check is stable at her polio baseline rate. Assessment doing reasonably well. Will give her a bolus of IV fluid x 1 now 2 and 50 cc over 30 minutes. Do not hold the blood pressure medications. Discontinue the narcotics as she is sensitive to that with her blood pressure. Continue the [id number] Tylenol. Will give her a one-time dose of Celebrex 200 mg now. See how she does with PT OT prior to discharge.
[2023-06-20 07:42] LABS: BUN Creatinine Ratio 21.6 (10-20); Calcium 7.7 mg/dl (8.6-10.3); Creatinine Clr Calc Pharmacy 33.6 ml/min; Est GFR (African American) 57.3 ml/min; Est GFR (Non-African American) 49.4 ml/min; Potassium 3.9 mmol/L (3.5-5.1)
[2023-06-20] MEDS: dexAMETHasone 10 MG in SYRINGE 0 ML IV SCH (08:45)
[2023-06-20] MEDS: APIXABAN 2.5 MG TAB PO SCH (08:45)
[2023-06-20] MEDS: CeleBREX 200 MG CAP PO SCH (09:36)
--- NOTE | 2023-06-20 10:15 | Orthopedic Progress Note ---
Date of Service June 20, 2023 Assessment & Plan (1) Status post right knee replacement: Plan: The patient was evaluated in her room this morning. Her postsurgical dressings were changed by me. Anand stocking was applied. The patient was placed on a heel bump to assist with knee extension. She states she did not have this done at all last evening or this morning. She complained of pain in the knee, and stated that her polio condition would not allow her need to go straight. She was reassured that her knee was straight yesterday in the OR, and that the heel props would help to prevent flexion contracture. She was encouraged to perform them for a few minutes numerous times throughout the day. The patient had her BP rechecked while I was in the room. After the fluid bolus, it was only 84/42. She was given an additional 250 cc bolus of normal saline. Recheck of her BP revealed 91/52. Will see how she does in physical therapy and Occupational Therapy today. She may require another night stay and return to [facility] tomorrow. Narcotic medication was held, as this may provoke her hypotension. Stick with Tylenol for now. She will be reassessed this afternoon. Written discharge instructions have been completed. Admission and Anticipated Discharge Date Admission Date: June 19, 2023 Subjective This 88-year-old female seen today in her room. She is 1 day status post right total knee arthroplasty. She is currently laying in bed. She states she has not been out of bed much. Her nurse states that her blood pressure has been low, around that she received a 250 cc bolus of saline this morning. It finished about 1/2-hour ago. The patient states she has some pain in her knee, but it is tolerable. She denies any numbness or tingling. She is worried that her previous polio weakness will make her recovery more difficult. She denies any chest pain, shortness of breath, nausea, vomiting, or abdominal pain. She is currently wearing oxygen by nasal cannula. Review of Systems Review of Systems: Unchanged from yesterday. Physical Exam Physical Exam: General: Well-developed, well-nourished, elderly female, in no acute distress. Sitting in bed. Seems somewhat sleepy. Alert and oriented. Skin: Warm and dry with fair turgor. No rashes. No ecchymosis. Postsurgical dressing is in place on her right knee. Upon removal, there is scant dried blood on her inner dressings. No active bleeding from her wound. [place] are in place. Wound edges are well-approximated. No significant ecchymosis or edema at her knee yet. There is some mild peripheral edema in her toes. Musculoskeletal: The patient has intact motor function of her hip, knee, and ankle. She cannot do a straight leg raise without some minor assistance at this time. She prefers to keep her knee flexed. Neurologic: Gross sensation is intact across the right leg by soft touch. Peripheral pulses are 2+. Results & Data Vital Signs (Past 12 Hours) Vital Signs Temp Pulse Pulse Resp BP Pulse Ox O2 Del Method 06/20/23 09:30 91/52 L 96 Nasal Cannula 06/20/23 07:54 91/52 L 06/20/23 07:25 Nasal Cannula 06/20/23 07:18 36.6 C 66 16 92 Nasal Cannula 06/20/23 03:04 36.7 C 69 16 96/59 L 98 Nasal Cannula 06/20/23 00:03 36.8 C 67 16 100/53 L 95 Nasal Cannula 06/19/23 23:58 36.6 C 67 16 90/48 L 92 Room Air O2 Flow Rate 06/20/23 09:30 1 06/20/23 07:54 06/20/23 07:25 2 06/20/23 07:18 2 06/20/23 03:04 2 06/20/23 00:03 2 06/19/23 23:58 Laboratory Results CBC obtained today shows white count of 10.49. H&H of 9.9 and 29.9. Platelets 187,000. Sodium 135, potassium 3.9, chloride 108. Anion gap of 5. BUN 22, creatinine 1.02. Glucose this morning is 90.
[2023-06-20] MEDS: PANTOprazole 40 MG TAB PO SCH (14:38)
--- NOTE | 2023-06-20 15:44 | Orthopedic Progress Note ---
Date of Service June 20, 2023 Assessment & Plan Admission and Anticipated Discharge Date Admission Date: June 19, 2023 Orthopedic Progress Note Afternoon rounds. Patient does not feel confident enough to go home today. Vital signs are stable she is afebrile. Restriction of her BP meds is allowing her blood pressure to drift up and her pulse to drift up. Vital signs are stable. Wound dressing clean dry and intact. Can still do straight leg raise. Heel slides to about 70 degrees in bed. Neurovascular check femoral sciatic nerve is baseline has some polio changes. Assessment overall progressing. Walked 40 feet with minimal assistance and a walker. Apparently transportation has been arranged for tomorrow. She will be discharged tomorrow. Will order a small dose of Inderal 10 mg to be administere d if her pulse gets above 80. This can be used as needed use every 4 hours every 6 hours as needed.
[2023-06-20] MEDS: PROPRANOLOL HCL 10 MG TAB PO SCH (19:50)
--- NOTE | 2023-06-21 06:20 | Orthopedic Progress Note ---
Date of Service June 21, 2023 Assessment & Plan Admission and Anticipated Discharge Date Admission Date: June 19, 2023 Orthopedic Progress Note Postop day #2 status post right total knee replacement. Block is wearing off patient is little more discomfort. She denies any chest pain shortness of breath fever chills nausea vomiting or headache. Wound dressing clean dry and intact. Calf nontender. Neurovascular check baseline for polio has active extension and flexion of the toes but weak which is baseline for her. She can do a straight leg raise. This point in time she is moving better her blood pressure is stable she needs to hold her BP pills until her systolic gets in the 105 or above region or pulse gets above 80. Of instructed her to hold those until that happens. Will also place that in the discharge summary addendum. Ended additionally she should be on an acid pill protecting her gastric lining and as she will be on Celebrex since she cannot tolerate narcotics. Try to discontinue the Celebrex MARTINEZ. Continue with the Protonix until she is off the Celebrex. Discontinue the knee immobilizer after Saturday. Dressing changed by nursing on Saturday leave present dressing in place until then. Follow-up in 2 weeks.
== END 2023-06-21 11:18 ==
LOC: ASU 05:25 → 3E 05:25